=== PATIENT | female | born 2000 | race Caucasian/White ===

== ENCOUNTER 2020-11-20 11:25 | Emergency (ER) | payer OTHER ==
[2020-11-20] MEDS ORDERED: MAGNESIUM SULFATE 1 gm IVPB 1 GM/100 ML BAG IV ONE (12:42)
[2020-11-20] MEDS ORDERED: ALBUTEROL 2.5 MG/3 ML NEB SOL ONE (12:42)
[2020-11-20] MEDS ORDERED: IPRATROPIUM BROM 0.5MG/2.5ML ONE (12:42)
[2020-11-20] MEDS ORDERED: NA CHLORIDE 0.9% 500 ML ONE (12:42)
[2020-11-20] MEDS ORDERED: dexAMETHasone 10 MG/ML VIAL ONE (12:42)
--- NOTE | 2020-11-20 14:25 | EDPHYS ---
Physician Documentation [facility] Name: Charity Bermudez Age: 19 yrs Sex: Female : 2000 Arrival Date: 11/20/2020 Time: 11:27 Bed 24 Private MD: ED Physician Hernando Velez HPI: 11/20 12:15 This 19 yrs old Female presents to ER via Ambulatory with complaints of jmm Asthma Exacerbation. 12:15 The patient presents to the emergency department with wheezing, Current therapy: None, jmm that began weather change. Onset: The symptoms/episode began/occurred gradually, 2 day(s) ago. Modifying factors: The symptoms are alleviated by nothing, the symptoms are aggravated by nothing. Associated signs and symptoms: Pertinent negatives: chest pain, fever. The patient has experienced similar episodes in the past, multiple times. 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 - Social history:: Smoking status: Patient reports the use of cigarette tobacco products, smokes one-half pack cigarettes per day. ROS: 12:15 Constitutional: Negative for fever, chills, and weight loss, Cardiovascular: Negative jmm for chest pain, palpitations, and edema. 12:15 Respiratory: Positive for cough, shortness of breath, wheezing. 12:15 All other systems are negative. Exam: 12:15 Head/Face: atraumatic. Eyes: EOMI, no conjunctival erythema appreciated ENT: Moist jmm Mucus Membranes Neck: Trachea midline, Supple Chest/axilla: Normal chest wall appearance and motion. Cardiovascular: Regular rate and rhythm. No edema appreciated 12:15 Abdomen/GI: Non distended, soft Back: Normal ROM Skin: General appearance color normal MS/ Extremity: Moves all extremities, no obvious deformities appreciated, no edema noted to the lower extremities Neuro: Awake and alert, normal gait Psych: Behavior is normal, Mood is normal, Patient is cooperative and pleasant 12:15 Constitutional: The patient appears alert, awake, anxious, uncomfortable. 12:15 Respiratory: mild respiratory distress is noted, Respirations: normal, Breath sounds: decreased breath sounds, that are moderate, are located in both bases, wheezing: that is mild. Vital Signs: 11:39 BP 120 / 71; Pulse 102; Resp 18; Temp 97.0; Pulse Ox 99% ; Weight 72.57 kg; Height 5 ll1 ft. 5 in. (165.10 cm); Pain 3/10; 12:16 BP 114 / 84; Pulse 93; Resp 18 S; Pulse Ox 98% on R/A; ca1 13:11 BP 109 / 77; Pulse 87; Resp 18 S; Pulse Ox 100% on Nebulizer Mask; ca1 14:14 BP 133 / 80; Pulse 93; Resp 18 S; Pulse Ox 96% on R/A; ca1 11:39 Body Mass Index 26.63 (72.57 kg, 165.10 cm) ll1 MDM: 12:10 Patient medically screened. [facility] 14:23 Data reviewed: vital signs, nurses notes. Counseling: I had a detailed discussion with kendra the patient and/or guardian regarding: the historical points, exam findings, and any diagnostic results supporting the discharge/admit diagnosis, the need for outpatient follow up, to return to the emergency department if symptoms worsen or persist or if there are any questions or concerns that arise at home. ED course: Patient states she feels much better on reevaluation. Patient is otherwise given strict return precautions. patient understood and agrees with the plan of care. . 11/20 12:13 Order name: Saline Lock; Complete Time: 12:45 [facility] Administered Medications: 12:30 Drug: DuoNeb (albuterol 2.5 mg, ipratropium 0.5 mg) (3:1) (2.5 mg - 0.5 mg) 3 ml Route: ca1 Nebulizer; 14:15 Follow up: Response: No adverse reaction; Marked relief of symptoms ca1 12:36 Drug: NS 0.9% 500 ml Route: IV; Rate: bolus; Site: left hand; ca1 13:16 Follow up: Response: No adverse reaction; IV Status: Completed infusion ca1 12:38 Drug: Decadron - Dexamethasone 10 mg Route: IVP; Site: left hand; ca1 14:14 Follow up: Response: No adverse reaction; Marked relief of symptoms ca1 12:40 Drug: Magnesium Sulfate 1 grams Route: IVPB; Infused Over: 1 hrs; Site: left hand; ca1 14:00 Follow up: Response: No adverse reaction; IV Status: Completed infusion; IV Intake: ca1 100ml Disposition: 17:55 Co-signature as Attending Physician, Hernando Velez MD available for consultation at ps1 all times. Signature for administrative purposes. Did not see or evaluate the patient unless otherwise noted. . Disposition: 11/20/20 14:24 Discharged to Home. Impression: Unspecified asthma with (acute) exacerbation. - Condition is Stable. - Discharge Instructions: Asthma, Adult. - Prescriptions for Prednisone 20 mg Oral Tablet - take 3 tablet by ORAL route once daily for 5 days; 15 tablet. Albuterol Sulfate 90 mcg/actuation - inhale 1-2 puff by INHALATION route every 4-6 hours; 1 Inhaler. - Medication Reconciliation Form, Thank You Letter, Antibiotic Education, Prescription Opioid Use form. - Follow up: Private Physician; When: 2 - 3 days; Reason: Recheck today's complaints, Continuance of care, Re-evaluation by your physician. Signatures: Davin Mon PA PA jmm Singer, Phillip, MD MD ps1 Johanny Dickens RN RN ca1 Roberto Chilel RN RN ll1 Corrections: (The following items were deleted from the chart) 14:44 14:24 11/20/2020 14:24 Discharged to Home. Impression: Unspecified asthma with (acute) ca1 exacerbation. Condition is Stable. Forms are Medication Reconciliation Form, Thank You Letter, Antibiotic Education, Prescription Opioid Use. Follow up: Private Physician; When: 2 - 3 days; Reason: Recheck today's complaints, Continuance of care, Re-evaluation by your physician. kendra
--- NOTE | 2020-11-20 14:25 | ER ---
Nurse's Notes [facility] Name: Charity Bermudez Age: 19 yrs Sex: Female : 2000 Arrival Date: 11/20/2020 Time: 11:27 Bed 24 Private MD: Diagnosis: Unspecified asthma with (acute) exacerbation Presentation: 11/20 11:39 Chief complaint: Patient states: SOB since Wednesday, constant. Cough when SOB gets worse. ll1 No fever. Coronavirus screen: Client denies travel out of the [place] in the last 14 days. cough unrelated to allergies, difficulty breathing, shortness of breath, Client presents with at least one sign or symptom that may indicate coronavirus-19. Standard/surgical mask placed on the client. Ebola Screen: Patient denies travel to an Ebola-affected area in the 21 days before illness onset. Initial Sepsis Screen: Does the patient meet any 2 criteria? HR > 90 bpm. No. Patient's initial sepsis screen is negative. Does the patient have a suspected source of infection? Yes: Productive cough/pneumonia. Risk Assessment: Do you want to hurt yourself or someone else? Patient reports no desire to harm self or others. Onset of symptoms was November 18, 2020. 11:39 Method Of Arrival: Ambulatory 1 11:39 Acuity: ADE 3 ll1 REGISTERED PHYSICAL THERAPIST: 12:18 [facility] 10/2020 ca1 Historical: - Allergies: 11:42 No Known Allergies; ll1 - PMHx: 11:42 Asthma; ll1 - Immunization history:: Flu vaccine is not up to date. - Social history:: Smoking status: Patient reports the use of cigarette tobacco products, smokes one-half pack cigarettes per day. Screenin:16 Abuse screen: Denies threats or abuse. Denies injuries from another. Nutritional ca1 screening: No deficits noted. Tuberculosis screening: No symptoms or risk factors identified. Fall Risk None identified. Assessment: 12:16 General: Appears in no apparent distress. comfortable, Behavior is calm, cooperative, ca1 appropriate for age. Pain: Denies pain. Neuro: Level of Consciousness is awake, alert, obeys commands, Oriented to person, place, time, situation. Cardiovascular: Heart tones S1 S2 present Capillary refill < 3 seconds Patient's skin is warm and dry. Respiratory: Airway is patent Respiratory effort is even, unlabored, Respiratory pattern is regular, symmetrical, Breath sounds with wheezes bilaterally. Respiratory: Reports shortness of breath since 3 days [employer] cough that is. GI: Abdomen is flat, non-distended, Bowel sounds present X 4 quads. Abd is soft and non tender X 4 quads. : No signs and/or symptoms were reported regarding the genitourinary system. EENT: No signs and/or symptoms were reported regarding the EENT system. Derm: Skin is intact, is healthy with good turgor, Skin is pink, warm \T\ dry. Musculoskeletal: Circulation, motion, and sensation intact. Capillary refill < 3 seconds. 13:11 Reassessment: Patient appears in no apparent distress at this time. Patient and/or ca1 family updated on plan of care and expected duration. Pain level reassessed. Patient is alert, oriented x 3, equal unlabored respirations, skin warm/dry/pink. 14:14 Reassessment: Patient appears in no apparent distress at this time. Patient and/or ca1 family updated on plan of care and expected duration. Pain level reassessed. Patient is alert, oriented x 3, equal unlabored respirations, skin warm/dry/pink. 14:14 Respiratory: Airway is patent Respiratory effort is even, unlabored, Respiratory ca1 pattern is regular, symmetrical, Breath sounds are clear bilaterally. 14:44 Reassessment: Patient appears in no apparent distress at this time. Patient is alert, ca1 oriented x 3, equal unlabored respirations, skin warm/dry/pink. Patient states feeling better. Patient states symptoms have improved. Vital Signs: 11:39 BP 120 / 71; Pulse 102; Resp 18; Temp 97.0; Pulse Ox 99% ; Weight 72.57 kg; Height 5 ll1 ft. 5 in. (165.10 cm); Pain 3/10; 12:16 BP 114 / 84; Pulse 93; Resp 18 S; Pulse Ox 98% on R/A; ca1 13:11 BP 109 / 77; Pulse 87; Resp 18 S; Pulse Ox 100% on Nebulizer Mask; ca1 14:14 BP 133 / 80; Pulse 93; Resp 18 S; Pulse Ox 96% on R/A; ca1 11:39 Body Mass Index 26.63 (72.57 kg, 165.10 cm) ll1 ED Course: 11:27 Patient arrived in ED. ds1 11:42 Triage completed. ll1 11:42 Arm band placed on. ll1 12:03 Davin Mon PA is PHCP. [facility] 12:03 Hernando Velez MD is Attending Physician. [facility] 12:10 Johanny Dickens, RN is Primary Nurse. ca1 12:16 Patient has correct armband on for positive identification. Bed in low position. Call ca1 light in reach. Side rails up X 1. Pulse ox on. NIBP on. 12:46 Inserted saline lock: 22 gauge in left hand, using aseptic technique. ca1 14:44 No provider procedures requiring assistance completed. IV discontinued, intact, ca1 bleeding controlled, No redness/swelling at site. Pressure dressing applied. Administered Medications: 12:30 Drug: DuoNeb (albuterol 2.5 mg, ipratropium 0.5 mg) (3:1) (2.5 mg - 0.5 mg) 3 ml Route: ca1 Nebulizer; 14:15 Follow up: Response: No adverse reaction; Marked relief of symptoms ca1 12:36 Drug: NS 0.9% 500 ml Route: IV; Rate: bolus; Site: left hand; ca1 13:16 Follow up: Response: No adverse reaction; IV Status: Completed infusion ca1 12:38 Drug: Decadron - Dexamethasone 10 mg Route: IVP; Site: left hand; ca1 14:14 Follow up: Response: No adverse reaction; Marked relief of symptoms ca1 12:40 Drug: Magnesium Sulfate 1 grams Route: IVPB; Infused Over: 1 hrs; Site: left hand; ca1 14:00 Follow up: Response: No adverse reaction; IV Status: Completed infusion; IV Intake: ca1 100ml Intake: 14:00 IV: 100ml; Total: 100ml. ca1 Outcome: 14:24 Discharge ordered by . [facility] 14:44 Discharged to home ambulatory. ca1 14:44 Condition: stable 14:44 Discharge instructions given to patient, Instructed on discharge instructions, follow up and referral plans. medication usage, Demonstrated understanding of instructions, follow-up care, medications, Prescriptions given X 2. 14:44 Patient left the ED. ca1 Signatures: Davin Mon PA PA Rhianna Mack ds1 Johanny Dickens RN RN ca1 Roberto Chilel RN RN ll1 Corrections: (The following items were deleted from the chart) 14:14 14:14 Reassessment: Patient appears in no apparent distress at this time. Patient ca1 and/or family updated on plan of care and expected duration. Pain level reassessed. Patient is alert, oriented x 3, equal unlabored respirations, skin warm/dry/pink. ca1
[2020-11-20 14:52] VITALS: TEMP 97
[2020-11-20 14:55] VITALS: BP 133/80; O2SAT 96
== END 2020-11-20 14:44 | disposition home or self-care (01) ==
LOC: ER 11:25
DX: J45.901 Unspecified asthma with (acute) exacerbation (principal); F17.210 Nicotine dependence, cigarettes, uncomplicated
CPT/HCPCS: 96365; 96375; 99284; J3475; J1100; J7040

== ENCOUNTER 2021-07-23 14:51 | Emergency (ER) | payer OTHER ==
--- OUTSIDE RECORDS SUMMARY | 2021-07-23 14:56 | XMS REPORT | Continuity of Care Document ---
:2000 Author Organization [facility] t Address [address] [place] [address] Care Team Providers Name Role Phone HERRICK Primary Care Physician Unavailable CHRISTOPHER GARCIA Attending Clinician Unavailable Cristi FLEMING Attending Clinician Evert SNIDER, M Attending Clinician Arun Cisneros DO Attending Clinician Delia FLEMING Attending Clinician Doctor Unassigned, Name Attending Clinician Unavailable Mary FLOYD S Attending Clinician Arun CISNEROS Attending Clinician Unavailable Brielle ERAZO Attending Clinician Unavailable CARMEN Attending Clinician Unavailable Carmen HWANG Attending Clinician Delia FLEMING Admitting Clinician CHRISTOPHER GARCIA Admitting Clinician Unavailable Payers Payer Name Policy Type Policy Number Effective Date Expiration Date S agatha [employer] CHOICE POS [id number] 2018 II 00:00:00 [employer] [id number] 2018 2019 HEALTH 00:00:00 00:00:00 Advance Directives Directive Decision Effective Termination Comments Source Date Date Healthcare Agents on N/A [facility] FileNameRelationshipHealthcare [facility] Agent Medical RelationshipCommunicationOfilia Branch [facility] Care [phone] (Mobile) [facility] [phone] (Mobile) Problems Condition Condition Condition Status Onset Resolution Last Treating Co mments Source Name Details Category Date Date Treatment Clinician Date Abscess Abscess Disease Active Univers 9-17 ity of 00:00: [place] 00 Medical Branch Disease Active U nivers care and care and 4-20 ity of examin[place] 00 Medical immediatel immediatel Br anch y after y after delivery delivery 39 weeks 39 weeks Disease Active Unive rs gestation gestation 4-16 ity of of of 00:00: [place] 00 [facility] Obesity Obesity Disease Active Univers (BMI (BMI 4-02 ity of 30-39.9) 30-39.9) 00:00: [address] Asthma Asthma Disease Active Univers complicati complicati 18 it y of ng ng 00:00: [place] , , 00 Me dical antepartum antepartum Br anch Asthma Asthma Disease Active Univers complicati complicati 05-24 it y of ng ng 00:00: [place] , , 00 Me dical antepartum antepartum Br anch Allergies, Adverse Reactions, Alerts Allergy Allergy Status Severity Reaction(s) Onset Inactive Treating Comm ents Source Name Type Date Date Clinician NO KNOWN Drug Active Univers ALLERGIE Class ity of S [facility] Social History Social Habit Start Date Stop Date Quantity Comments Source Exposure to Not sure [facility] SARS-CoV-2 [facility] (event) [place] Tobacco use and 2020-05-29 2020-05-29 Current user Univers ity of exposure 00:00:00 00:00:00 [facility] Alcohol intake 2020-05-29 2020-05-29 Current University of 00:00:00 00:00:00 non-drinker of [facility] alcohol (finding) Branch History [facility] 2020-05-23 2020-05-23 3 University o f Financial 00:00:00 00:00:00 [facility] History [facility] Food 2020-05-23 2020-05-23 1 Univers ity of Worry 00:00:00 00:00:00 [facility] History [facility] Food 2020-05-23 2020-05-23 1 Univers ity of Scarcity 00:00:00 00:00:00 [facility] History [facility] 2020-05-23 2020-05-23 2 University o f Transport Med 00:00:00 00:00:00 [place] Medic al Branch History SDOH 2020-05-23 2020-05-23 2 [place] o f Transport Non-Med 00:00:00 00:00:00 [place] M edical Branch History of 2018-05-05 Cigarette Smoker Universi ty of tobacco use 00:00:00 [facility] Sex Assigned At [birth year] Universit y of 00:00:00 00:00:00 [facility] Smoking Status Start Date Stop Date Source Light tobacco smoker 2020-05-29 00:00:00 Univers ity of [facility] Former smoker 2019-10-15 00:00:00 2019-10-15 [facility]00 [facility] Medications Ordered Filled Start Stop Current Ordering Indication Dosage Frequency Signature Comments Components Source Medication Medication Date Date Medication? Clinician (SIG) Name Name ipratropium 2020- No 3mL 3 mL, Univ ers -albuteroL 12-17 Inhalation it y of (DUONEB) 12:15: 11:12 , ONCE, 1 [place] as 0.5 mg-3 00 :00 dose, Tue Medica l mg(2.5 mg 12/17/20 at Bran ch base)/3 mL 0715, [place] nebulizer solution 3 mL predniSONE 2020- No 60mg 60 mg, Univ ers (DELTASONE) 12-17 Oral, ity of tablet 60 12:15: 11:07 ONCE, 1 [place] mg 00 :00 dose, Tue Medical 12/17/20 at Branch 0715, [place] ipratropium 2020- No 3mL 3 mL, Univ ers -albuteroL 12-17 Inhalation it y of (DUONEB) 12:15: 11:12 , ONCE, 1 [place] as 0.5 mg-3 00 :00 dose, Tue Medica l mg(2.5 mg 12/17/20 at Bran ch base)/3 mL 0715, [place] nebulizer solution 3 mL albuterol Yes [id number] 2{puff} Inhale 2 Univers (PROVENTIL 4-13 Puffs ity of HFA) 90 00:00: every 4 [place] mcg/actuati 00 (four) Medica l on inhaler hours as Branc h needed for Wheezing or Shortness of Breath. albuterol Yes [id number] 2.5mg Inhale 3 Univers 2.5 mg /3 4-13 mL every 4 ity of mL (0.083 00:00: (four) [place] %) 00 hours as Medical nebulizer needed for Bran ch solution Wheezing or Shortness of Breath. predniSONE 2020- No [id number] 60mg Take 3 Univers 20 mg 4-13 04-19 tablets by ity of tablet 00:00: 04:59 mouth [place] 00 :00 every Medical morning Branch for 5 days. lactobacill Yes [id number] 1{tbl} Take 1 Univers us 9-20 tablet by ity of acidophilus 00:00: mouth 2 [place] as 25 million 00 (two) Medical cell -100 times Branch mg captab daily. HYDROcodone Yes [id number] 1{tbl} Take 1-2 Univers -acetaminop 9-20 tablets by it y of hen 5-325 00:00: mouth [place] mg tablet 00 every 6 Medical (six) Branch hours as needed for Pain (scale 7-10). Indication s: acute pain ampicillin- Yes 1.5g 1.5 g, IV U nivers sulbactam 9-20 Piggyback, ity of (UNASYN) 00:00: Q6H ABX, [place] 1.5 g in 00 First dose Medic al NaCl 0.9% (after Branch (NS) 50 mL last MINI-BAG modificati on) on 05/25/20 at 1900, Until Discontinu ed, 50 mL
Reas on for Anti-Infec tive: Empiric Therapy for Suspected Infection< br>Empiric Therapy Site: Skin / Soft tissue
Duration of therapy: 72 hours lactobacill Yes [id number] 1{tbl} Take 1 Univers us 9-20 tablet by ity of acidophilus 00:00: mouth 2 [place] 25 million 00 (two) Medical cell -100 times Branch mg captab daily. HYDROcodone Yes [id number] 1{tbl} Take 1-2 Univers -acetaminop 9-20 tablets by it y of hen 5-325 00:00: mouth [place] mg tablet 00 every 6 Medical (six) Branch hours as needed for Pain (scale 7-10). Indication s: acute pain lactobacill 2020-0 Yes [id number] 1{tbl} Take 1 Univers us 9-20 tablet by ity of acidophilus 00:00: mouth 2 [place] as 25 million 00 (two) Medical cell -100 times Branch mg captab daily. HYDROcodone 2020-0 Yes [id number] 1{tbl} Take 1-2 Univers -acetaminop 9-20 tablets by it y of hen 5-325 00:00: mouth [place] mg tablet 00 every 6 Medical (six) Branch hours as needed for Pain (scale 7-10). Indication s: acute pain amoxicillin 2019-0 2020- No [id number] 1{tbl} Take 1 Univers -clavulanat -06-03 tablet by it y of e 00:00: 04:59 mouth 2 [place] (AUGMENTIN) 00 :00 (two) Medical 875-125 mg times Branch per tablet daily for 7 days. amoxicillin 2019-0 2020- No [id number] 1{tbl} Take 1 Univers -clavulanat -06-03 tablet by it y of e 00:00: 04:59 mouth 2 [place] (AUGMENTIN) 00 :00 (two) Medical 875-125 mg times Branch per tablet daily for 7 days. traMADoL 2019-0 2020- No 50mg 50 mg, Univer s (ULTRAM) 05-25 Oral, ity of tablet 50 21:50: 21:49 Q6HPRN, [place] mg 52 :52 Starting Medical Sat [place] 05/25/20 at 1650, Until [facility] 05/27/20 at 1649, Routine, Pain (scale 4-6) morpHINE 2019-0 2020- No 2mg 2 mg, Slow Un jacinto injection 2 05-25 IV Push, ity of mg 14:30: 13:31 ONCE, 1 [place] 00 :00 dose, Sat Medical 05/25/20 at Branch 0930, Routine vancomycin 2019-0 Yes 1500mg 1,500 mg, Univers 1500 mg in 05-25 IV ity of NS 500 mL 14:00: [place] IV 00 Q12H ABX, Medical Piggyback First dose Bran ch RTU 1,500 (after mg last modificati on) on 05/25/20 at 0900, Until Discontinu ed
Reas on for Anti-Infec tive: Documented Infection< br>Documen jr Infection Site: Skin / Soft Tissue
Duration of Therapy: 7 days KCL 20 2019-0 2020- No 40meq 40 mEq, Univer s mEq/15 mL 05-25 Oral, ONCE ity of solution 40 01:00: 00:47 TODAY, 1 [place] mEq 00 :00 dose, Fri Medical 05/24/20 at Branch 1999, Routine famotidine 2019- 2020- No 20mg 20 mg, Univ ers (PEPCID AC) 05-25 Oral, BID, i ty of tablet 20 01:00: 13:31 2 doses, [place] as mg 00 :00 First dose Medical on Fri Branch 05/24/20 at 2000, Last dose on [facility] 05/25/20 at 0800, Routine diphenhydrA 2019-2019- No 25mg 25 mg, Uni vers MINE 05-24 Oral, Q6H, ity of (BENADRYL) 23:00: 20:55 4 doses, [place] tablet 25 00 :00 First dose Medi nany mg on Fri Branch 05/24/20 at 1800, Last dose on [facility] 05/25/20 at 1200, Routine NaCl 0.9% 2019-0 Yes 1000mL at 50 Unive rs (NS) IV 9-18 mL/hr, IV ity of infusion 21:15: Infusion, [place] 1,000 mL 00 CONTINUOUS Medic al , Starting Branch 05/24/20 at 1615, Until Discontinu ed, Routine cefTRIAXone 2019-2019- No 2000mg 2,000 mg, Univers (ROCEPHIN) 05-24 IV ity of 2,000 mg in 21:10: 22:32 Piggyback, [place] NaCl 0.9% 00 :00 ONCE, 1 Medical (NS) 100 mL dose, [facility] MINI-BAG 05/24/20 at 1615, 100 mL
Reas on for Anti-Infec tive: Empiric Therapy for Suspected Infection< br>Empiric Therapy Site: Pelvic
Duration of therapy: 72 hours zinc 2020-0 Yes 220mg 220 mg, Univers sulfate 05-24 Oral, ity of (ORAZINC) 14:00: DAILY, [place] capsule 220 00 First dose Me dical mg on Wed Branch 05/24/20 at 0900, Until Discontinu ed, Routine ascorbic Yes 1000mg 1,000 mg, Un jacinto acid 05-24 Oral, ity of (vitamin C) 14:00: DAILY, [place] (VITAMIN C) 00 First dose Me dical tablet on Wed Branch 1,000 mg 05/24/20 at 0900, Until Discontinu ed, Routine docusate Yes 100mg 100 mg, Unive rs (COLACE) 05-24 Oral, ity of capsule 100 14:00: DAILY, [place] mg 00 First dose Medical on Wed Branch 05/24/20 at 0900, Until Discontinu ed, Routine vancomycin 2019- No 15mg/kg 1,250 mg Univers 1250 mg in 05-24 (rounded ity of NS 250 mL 01:00: 13:21 from 1,191 [place] RTU IV 00 :00 mg = 15 Medical Piggyback mg/kg Branch 1,250 mg ?79.4 kg), IV Piggyback, Q12H ABX, First dose on [facility] 05/23/20 at 2000, Until Discontinu ed
Reas on for Anti-Infec tive: Documented Infection< br>Documen jr Infection Site: Skin / Soft Tissue
Duration of Therapy: 7 days ampicillin- 2019- No 1.5g 1.5 g, IV Univers sulbactam 05-24 Piggyback, ity of (UNASYN) 00:00: 21:49 Q6H ABX, [place] 1.5 g in 00 :46 First dose Medic al NaCl 0.9% on [facility] Branch (NS) 50 mL 05/23/20 at MINI-BAG 1900, Until Discontinu ed, 50 mL
Reas on for Anti-Infec tive: Empiric Therapy for Suspected Infection< br>Empiric Therapy Site: Skin / Soft tissue
Duration of therapy: 72 hours NaCl 0.9% 2019- No 1000mL at 125 Uni vers (NS) IV 05-23 mL/hr, IV ity of infusion 20:30: 21:02 Infusion, [place] as 1,000 mL 00 :23 CONTINUOUS Medic al , Starting Branch [facility] 05/23/20 at 1530, Until 05/24/20 at 1602, Routine proCHLORper 2020-0 Yes 10mg 10 mg, Univ ers azine 05-23 Slow IV ity of (COMPAZINE) 20:13: Push, [place] injection 47 Q6HPRN, Medical 10 mg Starting Branch [facility] 05/23/20 at 1513, Until Discontinu ed, Routine, Nausea and Vomiting (N/V) HYDROcodone 2020-0 Yes 1{tbl} 1 tablet, Univers -acetaminop 05-23 Oral, ity of hen (NORCO) 20:13: Q6HPRN, Red as 10-325 mg 24 Starting Medica l tablet 1 [facility] tablet 05/23/20 at 1513, Until Discontinu ed, Routine, Pain (scale 7-10) traMADoL 2019-0 2020- No 50mg 50 mg, Univer s (ULTRAM) 05-23 Oral, ity of tablet 50 20:13: 20:12 Q8HPRN, [place] mg 18 :18 Starting Medical [facility] Branch 05/23/20 at 1513, Until 05/25/20 at 1512, Routine, Pain (scale 4-6) acetaminoph 2019-0 Yes 650mg 650 mg, Un jacinto en 05-23 Oral, ity of (TYLENOL) 20:13: Q6HPRN, [place] tablet 650 14 Starting Medic al mg [facility] Branch 05/23/20 at 1513, Until Discontinu ed, Routine, Pain (scale 1-3) morpHINE 2019-0 2020- No 4mg 4 mg, Slow Un jacinto injection 4 05-23 IV Push, ity of mg 19:15: 18:41 ONCE, 1 [place] 00 :00 dose, [facility] Medical 05/23/20 at Branch 1415, STAT NaCl 0.9% 2019-0 2020- No 1000mL at 999 Uni vers (NS) bolus 05-23 mL/hr, ity of infusion 19:00: 22:12 1,000 mL, Red as 1,000 mL 00 :00 IV Medical Infusion, [place] ONCE, 1 dose, [facility] 05/23/20 at 1400, [place] iohexol 2019-0 2020- No 120mL 120 mL, Unive rs (OMNIPAQUE 05-23 Intravenou it y of 350 16:21: 16:22 s, ONCE, 1 [place] BULK-150 00 :00 dose, [facility] Medica l mL) 05/23/20 at [place] injection 1145, 120 mL Routine vancomycin 2019-0 2020- No 1000mg 1,000 mg, Univers (VANCOCIN) 05-23 IV ity of 1,000 mg in 16:00: 17:39 Piggyback, [place] NaCl 0.9% 00 :00 ONCE, 1 Medical (NS) 250 mL dose, [facility] VIAL-MATE 05/23/20 at IV 1100, 250 piggyback mL
Reas on for Anti-Infec tive: Empiric Therapy for Suspected Infection< br>Empiric Therapy Site: Skin / Soft tissue
Duration of therapy: 72 hours ampicillin- 2019-0 2020- No 3000mg 3,000 mg, Univers sulbactam 05-23 IV ity of (UNASYN) 16:00: 15:49 [place], [place] 3,000 mg in 00 :00 ONCE, 1 Medic al NaCl 0.9% dose, [facility] Branc h (NS) 100 mL 05/23/20 at MINI-BAG 1100, 100 mL
Reas on for Anti-Infec tive: Empiric Therapy for Suspected Infection< br>Empiric Therapy Site: Skin / Soft tissue
Duration of therapy: 72 hours ondansetron 2019-0 2020- No 4mg 4 mg, Slow Univers (ZOFRAN 05-23 IV Push, ity of (PF)) 16:00: 15:10 ONCE, 1 [place] injection 4 00 :00 dose, [facility] Med ical mg 05/23/20 at Branch 1100, [place] morpHINE 2019-0 2020- No 4mg 4 mg, Slow Un jacinto injection 4 05-23 IV Push, ity of mg 16:00: 15:11 ONCE, 1 [place] 00 :00 dose, [facility] Medical 05/23/20 at Branch 1100, STAT lactobacill 2020-0 Yes 1{tbl} 1 tablet, Univers us 05-23 Oral, BID, ity of acidophilus 15:00: First dose [place] (ACIDOPHILL 00 on [facility] Medica l US) 25 05/23/20 at [place] million 1000, cell -100 Until mg captab 1 Discontinu tablet ed, Routine NaCl 0.9% 2020-0 2020- No 1000mL at 999 Uni vers (NS) bolus 05-23-17 mL/hr, ity of infusion 15:00: 16:07 1,000 mL, Red as 1,000 mL 00 :00 IV Medical Infusion, [place] ONCE, 1 dose, [facility] 05/23/20 at 1000, [place] predniSONE 2020-0 2020- No 50mg 50 mg, Univ ers (DELTASONE) 10-15 Oral, ity of tablet 50 15:30: 14:29 ONCE, 1 [place] mg 00 :00 dose, [facility] 10/15/19 at [place] 0930, [place] albuterol 2020-0 2020- No 2.5mg 2.5 mg, Uni vers (PROVENTIL) 10-15 Inhalation i ty of 2.5 mg /3 15:15: 15:21 , ONCE, 1 [place] mL (0.083 00 :00 dose, Sun Medic al %) 10/15/19 at [place] nebulizer 0915, STAT solution 2.5 mg ipratropium 2020-0 2020- No .5mg 0.5 mg, Un jacinto (ATROVENT) 10-15- Inhalation it y of 0.02 % 14:30: 14:30 , ONCE, 1 [place] nebulizer 00 :00 dose, Sun Medic al solution 10/15/19 at [place] 0.5 mg 0830, WILMAN albuterol 2020-0 2020- No 5mg 5 mg, Univer s (PROVENTIL) 10-15- Inhalation i ty of 2.5 mg /3 14:30: 14:30 , ONCE, 1 [place] mL (0.083 00 :00 dose, Sun Medic al %) 10/15/19 at [place] nebulizer 0830, STAT solution 5 mg albuterol 2020-0 Yes [id number] 2{puff} Inhale 2 Univers 90 2-09 Puffs ity of mcg/actuati 00:00: every 4 [place] as on inhaler 00 (four) Medical hours as Branch needed for Wheezing or Shortness of Breath. albuterol 2020-0 Yes [id number] 2{puff} Inhale 2 Univers 90 2-09 Puffs ity of mcg/actuati 00:00: every 4 [place] as on inhaler 00 (four) Medical hours as Branch needed for Wheezing or Shortness of Breath. albuterol Yes [id number] 2{puff} Inhale 2 Univers 90 2-09 Puffs ity of mcg/actuati 00:00: every 4 [place] on inhaler 00 (four) Medical hours as Branch needed for Wheezing or Shortness of Breath. albuterol Yes [id number] 2{puff} Inhale 2 Univers 90 2-09 Puffs ity of mcg/actuati 00:00: every 4 [place] on inhaler 00 (four) Medical hours as Branch needed for Wheezing or Shortness of Breath. albuterol Yes [id number] 2{puff} Inhale 2 Univers 90 2-09 Puffs ity of mcg/actuati 00:00: every 4 [place] on inhaler 00 (four) Medical hours as Branch needed for Wheezing or Shortness of Breath. albuterol Yes [id number] 2{puff} Inhale 2 Univers 90 2-09 Puffs ity of mcg/actuati 00:00: every 4 [place] on inhaler 00 (four) Medical hours as Branch needed for Wheezing or Shortness of Breath. albuterol Yes [id number] 2{puff} Inhale 2 Univers 90 2-09 Puffs ity of mcg/actuati 00:00: every 4 [place] on inhaler 00 (four) Medical hours as Branch needed for Wheezing or Shortness of Breath. predniSONE 2019- 2020- No [id number] 50mg Take 5 Univers 10 mg 10-15-14 tablets by ity of tablet 00:00: 05:59 mouth [place] 00 :00 daily for Medical 4 days. Branch dexamethaso 2019- 2020- No 10mg 10 mg, Uni vers ne 10-08- Oral, ity of (DECADRON 18:15: 17:14 ONCE, 1 [place] PHOSPHATE) 00 :00 dose, Sun Medi nany injection 10/08/19 at [facility] h 10 mg 1215, STAT penicillin 2019-0 2020- No [id number] 1000mg Take 2 Univers v potassium 10-08-10 tablets by i ty of 500 mg 00:00: 05:59 mouth 2 [place] tablet 00 :00 (two) Medical times Branch daily for 7 days. penicillin 2020- No [id number] 1000mg Take 2 Univers v potassium 2-02 02-10 tablets by i ty of 500 mg 00:00: 05:59 mouth 2 [place] tablet 00 :00 (two) Medical times Branch daily for 7 days. albuterol Yes [id number] 2{puff} Inhale 2 Univers 90 1-12 Puffs ity of mcg/actuati 00:00: every 4 [place] as on inhaler 00 (four) Medical hours as Branch needed for Wheezing, Shortness of Breath, Bronchospa sm or Chest tightness. albuterol 2019- No [id number] 2{puff} Inhale 2 Univers 90 1-12 02-09 Puffs ity of mcg/actuati 00:00: 00:00 every 4 [place] on inhaler 00 :00 (four) Medical hours as Branch needed for Wheezing, Shortness of Breath, Bronchospa sm or Chest tightness. medroxyPROG 2018- No 150mg Univ ers ESTERone 05-09 ity of (DEPO-PROVE 17:30: 16:16 [place] RA) 00 :00 Medical injection Branch 150 mg medroxyPROG 2018- No 150mg 150 mg, U nivers ESTERone 05-09 Intramuscu ity of (DEPO-PROVE 17:30: 16:16 lar, ONCE, [place] RA) 00 :00 1 dose, Medical injection 05/09/19 Bran ch 150 mg at 1230, Routine medroxyPROG 2019- No 150mg Univ ers ESTERone 05-09 ity of (DEPO-PROVE 17:30: 16:16 [place] RA) 00 :00 Medical injection Branch 150 mg medroxyPROG 2018- No 150mg 150 mg, U nivers ESTERone 05-09 Intramuscu ity of (DEPO-PROVE 17:30: 16:16 lar, ONCE, [place] RA) 00 :00 1 dose, Medical injection 05/09/19 Bran ch 150 mg at 1230, Routine medroxyPROG 2019- No 150mg Univ ers ESTERone 05-09 ity of (DEPO-PROVE 17:30: 16:16 [place] ) 00 :00 Medical injection Branch 150 mg medroxyPROG 2019-0 2019- No 150mg 150 mg, U nivers ESTERone 05-09 09-03 Intramuscu ity of (DEPO-PROVE 17:30: 16:16 lar, ONCE, [place] RA) 00 :00 1 dose, Medical injection 05/09/19 Bran ch 150 mg at 1230, Routine SERTraline 2018-0 Yes [id number] 50mg Take 1 U nivers (ZOLOFT) 50 6-24 tablet by ity of mg tablet 00:00: mouth [place] 00 daily. Medical Branch SERTraline 2018-0 Yes [id number] 50mg Take 1 U nivers (ZOLOFT) 50 6-24 tablet by ity of mg tablet 00:00: mouth [place] 00 daily. Medical Branch SERTraline 2018-0 Yes [id number] 50mg Take 1 U nivers (ZOLOFT) 50 6-24 tablet by ity of mg tablet 00:00: mouth [place] 00 daily. Medical Branch SERTraline 2019-0 Yes [id number] 50mg Take 1 U nivers (ZOLOFT) 50 6-24 tablet by ity of mg tablet 00:00: mouth [place] 00 daily. Medical Branch SERTraline 2019-0 Yes [id number] 50mg Take 1 U nivers (ZOLOFT) 50 6-24 tablet by ity of mg tablet 00:00: mouth [place] 00 daily. Medical Branch SERTraline 2019-0 Yes [id number] 50mg Take 1 U nivers (ZOLOFT) 50 6-24 tablet by ity of mg tablet 00:00: mouth [place] 00 daily. Medical Branch SERTraline 2019-0 Yes [id number] 50mg Take 1 U nivers (ZOLOFT) 50 6-24 tablet by ity of mg tablet 00:00: mouth [place] 00 daily. Medical Branch SERTraline 2019-0 Yes [id number] 50mg Take 1 U nivers (ZOLOFT) 50 6-24 tablet by ity of mg tablet 00:00: mouth [place] 00 daily. Medical Branch SERTraline 2019-0 Yes [id number] 50mg Take 1 U nivers (ZOLOFT) 50 6-24 tablet by ity of mg tablet 00:00: mouth [place] 00 daily. Medical Branch SERTraline 2019-0 Yes [id number] 50mg Take 1 U nivers (ZOLOFT) 50 6-24 tablet by ity of mg tablet 00:00: mouth [place] 00 daily. Medical Branch SERTraline Yes [id number] 50mg Take 1 U nivers (ZOLOFT) 50 6-24 tablet by ity of mg tablet 00:00: mouth [place] 00 daily. Medical Branch SERTraline Yes [id number] 50mg Take 1 U nivers (ZOLOFT) 50 6-24 tablet by ity of mg tablet 00:00: mouth [place] 00 daily. Medical Branch budesonide- Yes 2{puff} Inhale 2 Univers formoterol 9-18 Puffs 2 ity of 80-4.5 00:00: (two) [place] mcg/actuati 00 times Medical on inhaler daily. [place] budesonide Yes 2{puff} Inhale 2 Univers formoterol 9-18 Puffs 2 ity of 80-4.5 00:00: (two) [place] mcg/actuati 00 times Medical on inhaler daily. [place] budesonide Yes 2{puff} Inhale 2 Univers formoterol 9-18 Puffs 2 ity of 80-4.5 00:00: (two) [place] mcg/actuati 00 times Medical on inhaler daily. [place] budesonide Yes 2{puff} Inhale 2 Univers formoterol 9-18 Puffs 2 ity of 80-4.5 00:00: (two) [place] mcg/actuati 00 times Medical on inhaler daily. [place] budesonide Yes 2{puff} Inhale 2 Univers formoterol 9-18 Puffs 2 ity of 80-4.5 00:00: (two) [place] mcg/actuati 00 times Medical on inhaler daily. [place] budesonide Yes 2{puff} Inhale 2 Univers formoterol 9-18 Puffs 2 ity of 80-4.5 00:00: (two) [place] mcg/actuati 00 times Medical on inhaler daily. [place] budesonide Yes 2{puff} Inhale 2 Univers formoterol 9-18 Puffs 2 ity of 80-4.5 00:00: (two) [place] mcg/actuati 00 times Medical on inhaler daily. [place] budesonide- 0 Yes 2{puff} Inhale 2 Univers formoterol 9-18 Puffs 2 ity of 80-4.5 00:00: (two) [place] mcg/actuati 00 times Medical on inhaler daily. [place] budesonide Yes 2{puff} Inhale 2 Univers formoterol 9-18 Puffs 2 ity of 80-4.5 00:00: (two) [place] mcg/actuati 00 times Medical on inhaler daily. [place] budesonide Yes 2{puff} Inhale 2 Univers formoterol 9-18 Puffs 2 ity of 80-4.5 00:00: (two) [place] mcg/actuati 00 times Medical on inhaler daily. [place] budesonide Yes 2{puff} Inhale 2 Univers formoterol 9-18 Puffs 2 ity of 80-4.5 00:00: (two) [place] mcg/actuati 00 times Medical on inhaler daily. [place] budesonide Yes 2{puff} Inhale 2 Univers formoterol 9-18 Puffs 2 ity of 80-4.5 00:00: (two) [place] mcg/actuati 00 times Medical on inhaler daily. [place] Immunizations Ordered Filled Immunization Date Status Comments [facility] e Immunization Name Name Varicella 2018-12-24 Completed University of (varivax)(chicken 00:00:00 [place] M edical pox) Branch Varicella 2018-12-24 Completed University of (varivax)(chicken 00:00:00 [place] M edical pox) Branch Varicella 2018-12-24 Completed University of (varivax)(chicken 00:00:00 [place] M edical pox) Branch Varicella 2018-12-24 Completed University of (varivax)(chicken 00:00:00 [place] M edical pox) Branch Varicella 2018-12-24 Completed University of (varivax)(chicken 00:00:00 [place] M edical pox) Branch Varicella 2018-12-24 Completed University of (varivax)(chicken 00:00:00 [place] M edical pox) Branch Varicella 2018-12-24 Completed University of (varivax)(chicken 00:00:00 [place] M edical pox) Branch Varicella 2018-12-24 Completed University of (varivax)(chicken 00:00:00 [place] M edical pox) Branch Varicella 2018-12-24 Completed University of (varivax)(chicken 00:00:00 [place] M edical pox) Branch Varicella 2018-12-24 Completed University of (varivax)(chicken 00:00:00 [place] M edical pox) Branch Varicella 2018-12-24 Completed University of (varivax)(chicken 00:00:00 [place] M edical pox) Branch Varicella 2018-12-24 Completed University of (varivax)(chicken 00:00:00 [place] M edical pox) Branch Tdap 2018-11-07 Completed University of 00:00:00 [facility] Tdap 2018-11-07 Completed University of 00:00:00 [facility] Tdap 2018-11-07 Completed University of 00:00:00 [facility] Tdap 2018-11-07 Completed University of 00:00:00 [facility] TDAP 2018-11-07 Completed University of 00:00:00 [facility] Tdap 2018-11-07 Completed University of 00:00:00 [facility] TDAP 2018-11-07 Completed University of 00:00:00 [facility] TDAP 2018-11-07 Completed University of 00:00:00 [facility] Tdap 2018-11-07 Completed University of 00:00:00 [facility] Tdap 2018-11-07 Completed University of 00:00:00 [facility] Tdap 2018-11-07 Completed University of 00:00:00 [facility] Tdap 2018-11-07 Completed University of 00:00:00 [facility] Influenza Virus 2018-06-21 Completed Universit y of Vaccine Quad .5 mL 00:00:00 [facility] 6+ MO Branch Influenza Virus 2018-06-21 Completed Universit y of Vaccine [facility] .5 mL 00:00:00 [facility] 6+ [facility] Influenza Virus 2018-06-21 Completed Universit y of Vaccine [facility] .5 mL 00:00:00 [facility] IM 6+ MO Branch Influenza Virus 2018-06-21 Completed Universit y of [facility] [place] .5 mL 00:00:00 [facility] IM 6+ MO Branch Influenza Virus 2018-06-21 Completed Universit y of [facility] .5 mL 00:00:00 [facility] 6+ [facility] Influenza Virus 2018-06-21 Completed Universit y of [facility] .5 mL 00:00:00 [facility] 6+ [place] [facility] Influenza Virus 2018-06-21 Completed Universit y of [facility] .5 mL 00:00:00 [facility] 6+ [place] [facility] Influenza Virus 2018-06-21 Completed Universit y of [facility] .5 mL 00:00:00 [facility] 6+ [place] [facility] Influenza Virus 2018-06-21 Completed Universit y of [facility] .5 mL 00:00:00 [facility] 6+ [place] [facility] Influenza Virus 2018-06-21 Completed Universit y of [facility] .5 mL 00:00:00 [facility] 6+ [place] [facility] Influenza Virus 2018-06-21 Completed Universit y of [facility] [place] .5 mL 00:00:00 [facility] 6+ [facility] Influenza Virus 2018-06-21 Completed Universit y of [facility] [place] .5 mL 00:00:00 [facility] 6+ [place] [facility] Vital Signs Vital Name Observation Time Observation Value Comments Source Heart rate 2020-12-17 11:21:00 77 /min Universi ty [facility] Respiratory rate 2020-12-17 11:21:00 20 /min [facility] in 2020-12-17 11:13:00 100 /min University of Arterial blood by [facility] Pulse oximetry Branch Body weight 2020-12-17 11:01:00 72.576 kg Universi ty [facility] Systolic blood 2020-05-26 13:14:00 105 mm[Hg] Univer sity of pressure [facility] Diastolic blood 2020-05-26 13:14:00 58 mm[Hg] Unive rsity of pressure [facility] Heart rate 2020-05-26 13:14:00 73 /min Universi ty [facility] Body temperature 2020-05-26 13:14:00 37.11 Becky [facility] ersity of [facility] Oxygen saturation in 2020-05-26 13:14:00 93 /min University of Arterial blood by [facility] Pulse oximetry Branch Respiratory rate 2020-05-26 10:15:00 17 /min Univ ersity of [facility] Body weight 2020-05-24 09:40:00 84.823 kg Universi ty [facility] BMI 2020-05-24 09:40:00 31.12 kg/m2 Universi ty of [facility] Body height 2020-05-23 20:00:00 165.1 cm Universi ty of [facility] Systolic blood 2020-01-17 19:40:00 158 mm[Hg] Univer sity of pressure [facility] Diastolic blood 2020-01-17 19:40:00 80 mm[Hg] Unive rsity of pressure [facility] Heart rate 2020-01-17 19:40:00 80 /min Universi ty of [facility] Respiratory rate 2020-01-17 19:40:00 20 /min Univ ersity of [facility] Oxygen saturation in 2020-01-17 19:40:00 100 /min [facility] by [facility] Pulse oximetry [facility] Body temperature 2020-01-17 15:39:00 37.61 Becky Univ ersity of [facility] Body height 2020-01-17 15:39:00 165.1 cm Universi ty [facility] Body weight 2020-01-17 15:39:00 106.595 kg Universi ty [facility] BMI 2020-01-17 15:39:00 39.11 kg/m2 Universi ty of [facility] Systolic blood 2019-12-14 22:28:00 128 mm[Hg] Univer sity of pressure [facility] Diastolic blood 2019-12-14 22:28:00 65 mm[Hg] Unive rsity of pressure [facility] Heart rate 2019-12-14 22:28:00 101 /min Universi ty of [facility] Body temperature 2019-12-14 22:28:00 37.17 Becky Univ ersity of [facility] Respiratory rate 2019-12-14 22:28:00 18 /min Univ ersity of [facility] Body height 2019-12-14 22:28:00 165.1 cm Universi ty of [facility] Body weight 2019-12-14 22:28:00 104.327 kg Universi ty of [facility] BMI 2019-12-14 22:28:00 38.27 kg/m2 Universi ty of [facility] Oxygen saturation in 2019-12-14 22:28:00 98 /min University [facility]ial blood by [facility] Pulse oximetry [facility] Respiratory rate 2019-10-15 15:31:00 16 /min Univ ersity of [facility] Oxygen saturation in 2019-10-15 15:31:00 96 /min University of Arterial blood by [facility] nany Pulse oximetry Branch Systolic blood 2019-10-15 15:00:00 142 mm[Hg] Univer sity of pressure [facility] Diastolic blood 2019-10-15 15:00:00 85 mm[Hg] Unive rsity of pressure [facility] Heart rate 2019-10-15 15:00:00 117 /min Universi ty of [facility] Body temperature 2019-10-15 14:26:00 37.17 Becky Univ ersity of [facility] Body height 2019-10-15 14:26:00 165.1 cm Universi ty of [facility] Body weight 2019-10-15 14:26:00 102.059 kg Universi ty of [facility] BMI 2019-10-15 14:26:00 37.44 kg/m2 Universi ty [facility] Systolic blood 2019-10-08 16:56:00 126 mm[Hg] Univer sity of pressure [facility] Diastolic blood 2019-10-08 16:56:00 83 mm[Hg] Unive rsity of pressure [facility] Heart rate 2019-10-08 16:56:00 109 /min Universi ty of [facility] Body temperature 2019-10-08 16:56:00 36.89 Becky Univ ersity of [facility] Respiratory rate 2019-10-08 16:56:00 20 /min Univ ersity of [facility] Body height 2019-10-08 16:56:00 165.1 cm Universi ty of [facility] Body weight 2019-10-08 16:56:00 104.327 kg Universi ty [facility] BMI 2019-10-08 16:56:00 38.27 kg/m2 Universi ty of [facility] Oxygen saturation in 2019-10-08 16:56:00 100 /min University of Arterial blood by [facility] Pulse oximetry Branch Systolic blood 2019-05-09 15:43:00 129 mm[Hg] Univer sity of pressure [facility] Diastolic blood 2019-05-09 15:43:00 72 mm[Hg] Unive rsity of pressure [facility] Heart rate 2019-05-09 15:43:00 77 /min Universi ty of [facility] Body temperature 2019-05-09 15:43:00 36.67 Becky Univ ersity of [facility] Respiratory rate 2019-05-09 15:43:00 18 /min [facility] Body height 2019-05-09 15:43:00 165.1 cm [facility] Body weight 2019-05-09 15:43:00 103.874 kg [facility] BMI 2019-05-09 15:43:00 38.11 kg/m2 [facility] Procedures Procedure Date / Time Performing Clinician Source Performed NOTICE OF PRIVACY 2020-12-17 10:54:32 Doctor Unassigned, [facility] PRACTICES [place] [facility] CONSENT/REFUSAL FOR 2020-12-17 10:54:21 Doctor Unassigned, [facility] DIAGNOSIS AND TREATMENT [place] [facility] BASIC METABOLIC PANEL (NA, 2020-05-26 10:26:00 Erin Stephens [facility] K, CL, CO2, GLUCOSE, BUN, Medica l Branch CREATININE, CA) CBC WITH DIFF 2020-05-26 10:26:00 Erin Stephens [facility] BASIC METABOLIC PANEL (NA, 2020-05-25 08:34:00 Erin Stephens [facility] K, CL, CO2, GLUCOSE, BUN, Medica l Branch CREATININE, CA) CBC WITH DIFF 2020-05-25 08:34:00 Erin Stephens [facility] VANCOMYCIN TROUGH 2020-05-25 00:48:00 Tello Lin [facility] ASPIRATE OR ABSCESS 2020-05-24 20:39:50 Melanie Willingham [facility] CULTURE(AEROBIC/ANAEROBIC) [facility] BASIC METABOLIC PANEL (NA, 2020-05-24 10:44:00 Erin Stephens [facility] K, CL, CO2, GLUCOSE, BUN, Medica l Branch CREATININE, CA) CBC WITH DIFF 2020-05-24 10:44:00 Erin Stephens [facility] URINE CULTURE 2020-05-23 23:28:00 Erin Stephens [facility] PNEUMOCOCCAL ANTIGEN 2020-05-23 23:27:00 Erin Stephens [facility] LACTATE DEHYDROGENASE 2020-05-23 22:09:00 Erin Stephens [facility] PROCALCITONIN 2020-05-23 22:08:00 Erin Stephens [facility] CT PELVIS W CONTRAST 2020-05-23 16:31:[address] [facility] POCT TEST 2020-05-23 15:17:00 Berna Cisneros [facility] BLOOD CULTURE SCREEN 2020-05-23 15:16:[address] [facility] URINALYSIS 2020-05-23 15:16:00 Berna Cisneros [facility] BLOOD CULTURE SCREEN 2020-05-23 15:09:[address] [facility] FERRITIN SERUM 2020-05-23 15:09:00 Erin Stephens [facility] BASIC METABOLIC PANEL (NA, 2020-05-23 15:09:00 Berna Cisneros [facility] K, CL, CO2, GLUCOSE, BUN, Medica l Branch CREATININE, CA) CBC WITH DIFF 2020-05-23 15:09:00 Berna Cisneros [facility] GLYCOSYLATED HEMOGLOBIN 2020-05-23 15:09:00 Erin Stephens [facility] (A1C) [facility] COVID-19 (ID NOW RAPID 2020-05-23 15:09:00 Berna Cisneros [facility] TESTING) [facility] LACTIC ACID WHOLE BLOOD 2020-05-23 15:05:00 [facility] OF [facility]IVACY 2020-05-23 14:40:08 Doctor Unassigned, [facility] PRACTICES [place] [facility] [place] CONSENT/REFUSAL FOR 2020-05-23 14:39:59 Doctor Unasspaul, [facility] DIAGNOSIS AND TREATMENT [place] [facility] [place] FREE T4 2020-01-17 16:51:00 Jose Martin Colin [place] o [facility] THYROID STIMULATING 2020-01-17 16:51:00 Jose Martin Colin [facility] HORMONE [facility] HEPATIC FUNCTION PANEL 2020-01-17 16:51:00 Jose Martin Colin [facility] ([id number]) (ALB,T.PRO,BILI Medical Branch T,BU/BC,ALT,AST,ALK PHOS) BASIC METABOLIC PANEL (NA, 2020-01-17 16:51:00 Jose Martin Colin [facility] K, CL, CO2, GLUCOSE, BUN, Medica l Branch CREATININE, CA) SALICYLATE 2020-01-17 16:51:00 Jose Martin Colin [facility] ETHANOL 2020-01-17 16:51:00 Jose Martin Colin [facility] CBC WITH DIFFERENTIAL 2020-01-17 16:51:00 Jose Martin Colin [facility] sity [facility] PROTHROMBIN TIME / INR 2020-01-17 16:51:00 Jose Martin Colin [facility] ACTIVATED PARTIAL THRMPLAS 2020-01-17 16:51:00 Jose Martin Colin [facility] URINALYSIS 2020-01-17 16:51:00 Jose Martin Colin [facility] POCT TEST 2020-01-17 16:51:00 Jose Martin Colin [facility] ADC / LCC - DRUG SCREEN 2020-01-17 16:51:00 Jose Martin Colin [facility] CONSENT/REFUSAL FOR 2020-01-17 15:31:30 Doctor Unaleni, [facility] STREP SCREEN FOR 2019-10-08 17:14:00 Berna Cisneros [facility] A [facility] CONSENT/REFUSAL FOR 2019-10-08 16:54:42 Doctor Ron, [facility] NO SHOW OR MISSED 2019-05-09 15:30:47 Doctor Ron [facility] APPOINTMENT POLICY [place] [facility] ACKNOWLEDGEMENT POCT TEST 2019-05-09 00:00:00 Leydi Chandler [facility] Encounters Start End Encounter Admission Attending Care Care Encounter Source Date/Time Date/Time Type Type Clinicians Facility Department ID 2021-07-06 Emergency [facility] [id number] [facility] Emergency [facility] [id number] Univers 18:01:37 [facility]-07-03 Emergency [facility] [id number] Univers 20:50:57 [facility] 2021-07-03 Emergency [facility] [id number] Univers 17:36:43 ity of [facility] 2021-07-28 2021-07-28 Outpatient Mingo GARCIAJOEEN [facility] [id number] Univers 14:00:00 14:00:00 [id number] ity of [facility] 2020-12-17 2020-12-17 Emergency [facility] [id number] Univers 05:59:00 07:03:00 Jose Martin Zelaya [id number] i ty [place] [id number] [place] 945684 [place] 2020-05-28 2020-05-28 Transition Gillian Loyd [id number] Univers 00:00:00 00:00:00 of Care Mattie Bullard [id number] i ty [place] [id number] [facility] 403 Branch 2020-05-23 2020-05-26 [facility] Berna Cisneros [facility] 1.2.84 [id number] Univers 09:46:00 09:37:00 Encounter Tello Lin [id number] [place]y [place] [id number] [place] [id number] [place] 2020-01-17 2020-01-17 [facility] [id number] Univers 10:45:16 14:44:00 Jose Martin Zelaya [id number] i ty [place] [id number] [place] 945684 [place] 2020-01-17 2020-01-17 Orders Doctor FOREST [id number] Univers 00:00:00 00:00:00 Only Unassigned, SABINA [id number] ity of [place] [facility] 4.2.7.2.686 [place] [id number] [facility] 009 Branch 2019-12-14 2019-12-14 Emergency [facility] [id number] Univers 17:30:12 19:02:00 Erin Hannah Garcia [id number] i ty of [place] 4.2.7.2.686 [facility] [id number] [address] 2019-10-15 2019-10-15 Emergency [facility] E[facility] [id number] Univers 08:24:18 09:54:00 BERNA ravi [facility] 2019-10-15 2019-10-15 Emergency [facility] [id number] Univers 08:24:18 09:54:00 Berna Dias Garcia [id number] ity of [place] 4.2.7.2.686 [facility] [id number] [address] 2019-10-08 2019-10-08 Emergency X [facility] ERT [id number] Univers 10:57:03 12:01:00 BERNA kingstondemetrio [facility] 2019-10-08 2019-10-08 Emergency [facility] [id number] Univers 10:57:03 12:01:00 Berna Zelaya [id number] ity of [place] 4.2.7.2.686 [facility] [id number] [address] 2019-09-16 2019-09-17 Emergency [facility] ERT [id number] Univers 23:41:38 01:04:00 [facility] 2019-05-09 2019-05-09 Outpatient R CARMEN [facility] [id number] Univers 11:15:00 11:29:05 LEYDI ravi [facility] 2019-05-09 2019-05-09 Office Carmen [facility] [id number] Univers 10:32:19 11:02:19 Visit Leydi Zelaya 350.1.13.10 i ty of [place] 4.2.7.2.686 [facility] Professio [id number] [facility] 134 [facility] 2019-05-09 2019-05-09 Orders Doctor GARG [id number] Univers 00:00:00 00:00:00 Only Unassigned, SABINA Fuller.1.13.10 ity of [place] [facility] 4.2.7.2.686 [place] [id number] [address] 2019-02-27 2019-02-27 Outpatient ARTEMIO ESTEVEZ [facility] [id number] Univers 10:45:00 11:26:28 ity [facility] 2018-12-20 2018-12-24 Inpatient [facility] [id number] [facility] 18:45:00 13:35:00 [facility] Results Test Description Test Time Test Comments Results Result Comments Source Basic Metabolic Panel (NA, K, CL, CO2, GLUCOSE, BUN, 2020-05 12:33:00 CREATININE, CA) Test Item Value Reference Range Interpretation Comme nts NA (test code = 7236377781) 140 mmol/L 135-145 K (test code = 1007482839) 3.5 mmol/L 3.5-5 CL (test code = 8975760637) 105 mmol/L 98-108 CO2 TOTAL (test code = 3920563985) 29 mmol/L 23-31 AGAP (test code = 9724581546) 2-16 BUN (test code = 8580167922) 7 mg/dL 7-23 GLUCOSE (test code = 2673633223) 101 mg/dL 70-110 CREATININE (test code = 0.60 mg/dL 0.5-1.04 8337023451) CALCIUM (test code = 2590167531) 8.3 mg/dL 8.6-10.6 L eGFR Calculation (Non- mL/min/1.73m2 [place]) (test code = 8657711646) eGFR Calculation ( mL/min/1.73m2 [place]) (test code = 1217048754) WILLY (test code = WILLY) Association of Glomerular Filtration Rate (GFR) and Staging of Kidney Disease* + +-------- + ------+| GFR (mL/min/1.73 m2) ?| With Kidney Damage ?| ?Without Kidney Damage+ +-- + +| ?>90 ?| ?Stage one ?| ? Normal ?+ +------- + -------+| ?60-89 ?| ?Stage two ?| ? Decreased GFR ? + +-------- + ------+| ?30-59 ?| ?Stage three ?| ? Stage three ? + +-------- + ------+| ?15-29 ?| ?Stage four ? | ? Stage four ?+ +------- + -------+| ?<15 (or dialysis) ? ?| ?Stage five ? | ? Stage five ?+ +------- + -------+ *Each stage assumes the associated GFR level has been in effect for at least three months. ?Stages 1 to 5, with or without kidney disease, indicate chronic kidney disease. Notes: Determination of stages one and two (with eGFR >59mL/min/1.73 m2) requires estimation of kidney damage for at least three months as defined by structural or functional abnormalities of the kidney, manifested by either:Pathological abnormalities or Markers of kidney damage (including abnormalities in the composition of the blood or urine or abnormalities in imaging tests). Lab Interpretation (test code = Abnormal 99292-6) [facility] with [id number] 11:31:00 Test Item Value Reference Range Interpretation Comments WBC (test code = See_Comment H [Automated 6690-2) message] The sy stem which generated this result transmitted reference range : 4.30 - 11.10 10*3/?L. The reference range was not used to interpret this result as normal/abnormal . RBC (test code = See_Comment L [Automated 789-8) message] The sy stem which generated this result transmitted reference range : 3.93 - 5.25 10*6/?L. The reference range was not used to interpret this result as normal/abnormal . HGB (test code = 11.0 g/dL 11.6-15 L 718-7) HCT (test code = 31.9 % 35.7-45.2 L 4544-3) MCV (test code = 90.1 fL 80.6-95.5 787-2) MCH (test code = 31.1 pg 25.9-32.8 785-6) MCHC (test code = 34.5 g/dL 31.6-35.1 786-4) RDW-SD (test code = 38.1 fL 39-49.9 L 85227-0) RDW-CV (test code = 11.5 % 12-15.5 L 788-0) PLT (test code = See_Comment [Automated 777-3) message] The sy stem which generated this result transmitted reference range : 166 - 358 10*3/ ?L. The reference r michael was not used to interpret this result as normal/abnormal . MPV (test code = 10.6 fL 9.5-12.9 54275-3) NRBC/100 WBC (test See_Comment [Automat ed code = 0518258730) message] The system which generated this result transmitted reference range : 0.0 - 10.0 /100 WBCs. The refer ence range was not u sed to interpret th is result as normal/abnormal . NRBC x10^3 (test code <0.01 See_Comment [Auto mated = 2421355032) message] The s ystem which generated this result transmitted reference range : 10*3/?L. The reference range was not used to interpret this result as normal/abnormal . GRAN MAT (NEUT) % 67.8 % (test code = 770-8) IMM GRAN % (test code 0.90 % = 5065202214) LYMPH % (test code = 21.0 % 736-9) MONO % (test code = 6.8 % 5905-5) EOS % (test code = 3.0 % 713-8) BASO % (test code = 0.5 % 706-2) GRAN MAT x10^3(ANC) 8.45 10*3/uL 1.88-7.09 H (test code = 9908886558) IMM GRAN x10^3 (test 0.11 10*3/uL 0-0.06 H code = 2112372705) LYMPH x10^3 (test code 2.61 10*3/uL 1.32-3.29 = 731-0) MONO x10^3 (test code 0.84 10*3/uL 0.33-0.92 = 742-7) EOS x10^3 (test code = 0.37 10*3/uL 0.03-0.39 711-2) BASO x10^3 (test code 0.06 10*3/uL 0.01-0.07 = 704-7) Lab Interpretation Abnormal (test code = 68279-2) [id number] 13:13:00 Test Item Value Reference Range Interpretation Comments URINE CULTURE (test No aerobic growth (< code = 630-4) 1000 CFU/mL) [facility] [id number] 11:22:00 Test Item Value Reference Range Interpretation Comments WBC (test code = See_Comment H [Automated 6690-2) message] The system which generated this result transmit jr reference range : 4.30 - 11.10 10*3/?L. The reference range was not used to interpret this result as normal/abnormal . RBC (test code = See_Comment L [Automated 789-8) message] The system which generated this result transmit jr reference range : 3.93 - 5.25 10*6/?L. The reference range was not used to interpret this result as normal/abnormal . HGB (test code = 11.6 g/dL 11.6-15 718-7) HCT (test code = 33.9 % 35.7-45.2 L 4544-3) MCV (test code = 89.9 fL 80.6-95.5 787-2) MCH (test code = 30.8 pg 25.9-32.8 785-6) MCHC (test code = 34.2 g/dL 31.6-35.1 786-4) RDW-SD (test code = 37.8 fL 39-49.9 L 54065-4) RDW-CV (test code = 11.6 % 12-15.5 L 788-0) PLT (test code = See_Comment [Automated 777-3) message] The system which generated this result transmit jr reference range : 166 - 358 10*3/ ?L. The reference range was not u sed to interpret th is result as normal/abnormal . MPV (test code = 10.5 fL 9.5-12.9 67726-7) NRBC/100 WBC (test See_Comment [Automat ed code = 4647475159) message] The system which generated this result transmit jr reference range : 0.0 - 10.0 /100 WBCs. The reference range was not used to interpret this result as normal/abnormal . NRBC x10^3 (test code <0.01 See_Comment [Auto mated = 7195871058) message] The system which generated this result transmit jr reference range : 10*3/?L. The reference range was not used to interpret this result as normal/abnormal . GRAN MAT (NEUT) % 90.8 % (test code = 770-8) IMM GRAN % (test code 1.10 % = 3773316516) LYMPH % (test code = 4.2 % 736-9) MONO % (test code = 3.6 % 5905-5) EOS % (test code = 0.0 % 713-8) BASO % (test code = 0.3 % 706-2) GRAN MAT x10^3(ANC) 19.17 10*3/uL 1.88-7.09 H (test code = 0717604707) IMM GRAN x10^3 (test 0.23 10*3/uL 0-0.06 H code = 2054316082) LYMPH x10^3 (test code 0.89 10*3/uL 1.32-3.29 L = 731-0) MONO x10^3 (test code 0.75 10*3/uL 0.33-0.92 = 742-7) EOS x10^3 (test code = <0.03 0.03-0.39 L 711-2) BASO x10^3 (test code 0.06 10*3/uL 0.01-0.07 = 704-7) Lab Interpretation Abnormal (test code = 94856-3) [facility] Metabolic Panel (NA, K, CL, CO2, GLUCOSE, BUN, CREATININE, CA)2020-05-25 11:18:00 Test Item Value Reference Range Interpretation Comments NA (test code = 138 mmol/L 135-145 4137623785) K (test code = 4.1 mmol/L 3.5-5 4019337311) CL (test code = 103 mmol/L 98-108 7280909163) CO2 TOTAL (test code = 28 mmol/L 23-31 6946893503) AGAP (test code = 2-16 7464123865) BUN (test code = 9 mg/dL 7-23 4516890668) GLUCOSE (test code = 139 mg/dL 70-110 H 6216637490) CREATININE (test code = 0.59 mg/dL 0.5-1.04 6618929535) CALCIUM (test code = 8.6 mg/dL 8.6-10.6 8013236320) eGFR Calculation mL/min/1.73m2 (Non-) (test code = 6212155301) eGFR Calculation mL/min/1.73m2 () (test code = 6132187878) WILLY (test code = WILLY) Association of Glomerular Filtration Rate (GFR) and Staging of Kidney Disease* + --+ --+ ------+| GFR (mL/min/1.73 m2) ?| With Kidney Damage ?| ?Without Kidney Damage+ --------+ --------+ +| ?>90 ?| ?Stage one ?| ? Normal ?+ ---+ ---+ -------+| ?60-89 ?| ?Stage two ?| ? Decreased GFR ? + --+ --+ ------+| ?30-59 ?| ?Stage three ?| ? Stage three ? + --+ --+ ------+| ?15-29 ?| ?Stage four ? | ? Stage four ?+ ---+ ---+ -------+| ?<15 (or dialysis) ? ?| ?Stage five ? | ? Stage five ?+ ---+ ---+ -------+ *Each stage assumes the associated GFR level has been in effect for at least three months. ?Stages 1 to 5, with or without kidney disease, indicate chronic kidney disease. Notes: Determination of stages one and two (with eGFR >59mL/min/1.73 m2) requires estimation of kidney damage for at least three months as defined by structural or functional abnormalities of the kidney, manifested by either:Pathological abnormalities or Markers of kidney damage (including abnormalities in the composition of the blood or urine or abnormalities in imaging tests). Lab Interpretation Abnormal (test code = 37747-9) [facility] - Draw within 30 minutes prior to 4TH dose.2020-05-25 02:23:00 Test Item Value Reference Range Interpretation Comments VANCO TROUGH (test code 5.2 ug/mL 10-20 L = 1954368931) WILLY (test code = WILLY) Toxic Range: ?>20 ug/mL 15-20 ug/mL is recommended for severe infection or when Vancomycin EVETTE is greater than or equal to 2. Lab Interpretation (test Abnormal code = 76822-1) [facility] with [id number] 11:29:00 Test Item Value Reference Range Interpretation Comments WBC (test code = See_Comment H [Automated 6690-2) message] The system which generated this result transmit jr reference range : 4.30 - 11.10 10*3/?L. The reference range was not used to interpret this result as normal/abnormal . RBC (test code = See_Comment [Automated 789-8) message] The system which generated this result transmit jr reference range : 3.93 - 5.25 10*6/?L. The reference range was not used to interpret this result as normal/abnormal . HGB (test code = 13.2 g/dL 11.6-15 718-7) HCT (test code = 37.2 % 35.7-45.2 4544-3) MCV (test code = 89.6 fL 80.6-95.5 787-2) MCH (test code = 31.8 pg 25.9-32.8 785-6) MCHC (test code = 35.5 g/dL 31.6-35.1 H 786-4) RDW-SD (test code = 38.4 fL 39-49.9 L 23875-0) RDW-CV (test code = 11.8 % 12-15.5 L 788-0) PLT (test code = See_Comment [Automated 777-3) message] The system which generated this result transmit jr reference range : 166 - 358 10*3/ ?L. The reference range was not u sed to interpret th is result as normal/abnormal . MPV (test code = 10.1 fL 9.5-12.9 48718-3) NRBC/100 WBC (test See_Comment [Automat ed code = 8341451208) message] The system which generated this result transmit jr reference range : 0.0 - 10.0 /100 WBCs. The reference range was not used to interpret this result as normal/abnormal . NRBC x10^3 (test code <0.01 See_Comment [Auto mated = 0784529334) message] The system which generated this result transmit jr reference range : 10*3/?L. The reference range was not used to interpret this result as normal/abnormal . GRAN MAT (NEUT) % 81.1 % (test code = 770-8) IMM GRAN % (test code 0.90 % = 2274301786) LYMPH % (test code = 10.6 % 736-9) MONO % (test code = 5.4 % 5905-5) EOS % (test code = 1.6 % 713-8) BASO % (test code = 0.4 % 706-2) GRAN MAT x10^3(ANC) 15.75 10*3/uL 1.88-7.09 H (test code = 5611072188) IMM GRAN x10^3 (test 0.17 10*3/uL 0-0.06 H code = 7198121407) LYMPH x10^3 (test code 2.05 10*3/uL 1.32-3.29 = 731-0) MONO x10^3 (test code 1.04 10*3/uL 0.33-0.92 H = 742-7) EOS x10^3 (test code = 0.31 10*3/uL 0.03-0.39 711-2) BASO x10^3 (test code 0.07 10*3/uL 0.01-0.07 = 704-7) Lab Interpretation Abnormal (test code = 57880-9) [facility] Metabolic Panel (NA, K, CL, CO2, GLUCOSE, BUN, CREATININE, CA)2020-05-24 11:25:00 Test Item Value Reference Range Interpretation Comments NA (test code = 139 mmol/L 135-145 1124994299) K (test code = 3.2 mmol/L 3.5-5 L 5474075627) CL (test code = 102 mmol/L 98-108 7146039751) CO2 TOTAL (test code = 26 mmol/L 23-31 9159092516) AGAP (test code = 2-16 6245153888) BUN (test code = 6 mg/dL 7-23 L 8388478657) GLUCOSE (test code = 94 mg/dL 70-110 8326305553) CREATININE (test code = 0.63 mg/dL 0.5-1.04 5854435787) CALCIUM (test code = 9.0 mg/dL 8.6-10.6 7730255316) eGFR Calculation mL/min/1.73m2 (Non-) (test code = 9966873563) eGFR Calculation mL/min/1.73m2 () (test code = 3559043691) WILLY (test code = WILLY) Association of Glomerular Filtration Rate (GFR) and Staging of Kidney Disease* + --+ --+ ------+| GFR (mL/min/1.73 m2) ?| With Kidney Damage ?| ?Without Kidney Damage+ --------+ --------+ +| ?>90 ?| ?Stage one ?| ? Normal ?+ ---+ ---+ -------+| ?60-89 ?| ?Stage two ?| ? Decreased GFR ? + --+ --+ ------+| ?30-59 ?| ?Stage three ?| ? Stage three ? + --+ --+ ------+| ?15-29 ?| ?Stage four ? | ? Stage four ?+ ---+ ---+ -------+| ?<15 (or dialysis) ? ?| ?Stage five ? | ? Stage five ?+ ---+ ---+ -------+ *Each stage assumes the associated GFR level has been in effect for at least three months. ?Stages 1 to 5, with or without kidney disease, indicate chronic kidney disease. Notes: Determination of stages one and two (with eGFR >59mL/min/1.73 m2) requires estimation of kidney damage for at least three months as defined by structural or functional abnormalities of the kidney, manifested by either:Pathological abnormalities or Markers of kidney damage (including abnormalities in the composition of the blood or urine or abnormalities in imaging tests). Lab Interpretation Abnormal (test code = 74729-1) [facility]NE[facility] [id number] 08:07:00 Test Item Value Reference Range Interpretation Comments S. pneumoniae antigen (test code = Negative Negative 7740064982) Lab Interpretation (test code = Normal 06788-8) [facility] HospitalLEGIONELLA URINARY ANTIGEN [id number] 06:47:00 Test Item Value Reference Range Interpretation Comments Legionella Urinary Negative Negative Antigen (test code = 9936542965) WILLY (test code = WILLY) Negative for L. pneumophilia serogroup I antigen in urine suggesting no recent or current infection. Infection due to Legionella cannot be ruled out since other serogroups and species may cause disease. Furthermore, antigens may not be present in urine during early stage of infection, or the level of antigen present in urine may be below the detection limit of the test. Lab Interpretation (test Normal code = 87911-3) [facility] HospitalPROCALCITONIN2020-09-18 05:45:00 Test Item Value Reference Range Interpretation Comments Procalcitonin (test 0.09 ng/mL <0.07 H code = 5778821346) WILLY (test code = WILLY) INTERPRETATION OF PROCALCITONIN RESULTS IN ADULTS >= 18 YEARS OF AGE Initiation and discontinuation of antibiotics on patients with suspected or confirmed Lower Respiratory Tract Infection in Adults >= 18 years of age. + +-------- --------+ + -----+|Procalcitonin |Interpretation ?|Antibiotic ? ? |Considerations ? |ng/mL ? | ?|recommendation | ? + +-------- --------+ + -----+| <0.1 ? | Bacterial ? ? ?| Strongly ? ? ?| ? | ?| infection very | discouraged ? | Overruling: ? | ?| unlikely ? ? ? | ? | ? Clinically unstable ? ? ? + +-------- --------+ + ? High risk for adverse ? ? | <0.25 ?| Bacterial ? ? ?| Discouraged ? | ? outcome ? | ?| infection ? ? ?| ? | ? SEE IMPORTANT NOTE ?| ?| unlikely ? ? ? | ? | ? + +-------- --------+ + -----+| >=0.25 ? ? ? | Bacterial ? ? ?| Encouraged ? ?| ? | ?| infection ? ? ?| ? | ? | ?| likely ? | ? | Consider treatment failure ?+ +------- ---------+ -+ if levels does not decrease | >0.5 ? | Bacterial ? ? ?| Strongly ? ? ?| appropriately ? | ?| infection very | encouraged ? ?| ? | ?| likely ? | ? | ? + +-------- --------+ + -----+ Discontinuation of antibiotics in high-acuity patients with suspected or confirmed sepsis in Adults >= 18 years of age. + +-------- --------+ + -----+|Procalcitonin |Interpretation ?|Antibiotic ? ? |Considerations ? |ng/mL ? | ?|recommendation | ? + +-------- --------+ + -----+| <0.25 ?| Bacterial ? ? ?| Strongly ? ? ?| ? | ?| infection very | discouraged ? | Overruling: ? | ?| unlikely ? ? ? | ? | ? Clinically unstable ? ? ? + +-------- --------+ + ? High risk for adverse ? ? | <0.5 or drop | Bacterial ? ? ?| Discouraged ? | ? outcome ? | >80% from ? ?| infection ? ? ?| ? | ? SEE IMPORTANT NOTE ?| highest PCT ?| unlikely ? ? ? | ? | ? | level ?| ?| ? | ? + +-------- --------+ + -----+| >=0.5 ?| Bacterial ? ? ?| Encouraged ? ?| ? | ?| infection ? ? ?| ? | ? | ?| likely ? | ? | Consider treatment failure ?+ +------- ---------+ -+ if levels does not decrease | >1.0 ? | Bacterial ? ? ?| Strongly ? ? ?| appropriately ? | ?| infection very | encouraged ? ?| ? | ?| likely ? | ? | ? + +-------- --------+ + -----+ Percentage of drop of Procalcitonin calculation for Discontinuation of antibiotics in high-acuity patients with suspected or confirmed sepsis in Adults >= 18 years of age. ? Procalcitonin highest{}-Procalcitonin current{}Delta Procalcitonin = x100% ? Procalcitonin current {} IMPORTANT NOTE: Procalcitonin may be elevated without bacterial infection by physiologic stress related to trauma, bowling, chronic dialysis, metastatic cancer, surgery in the past seven days, malaria, some fungal infections, and some forms of vasculitis. The interpretation algorithm may not apply to patients with immunosuppression (equivalent of >10 mg of prednisone daily), HIV with CD4 cell count < 350 cells/mm3, active malignancy on systemic chemotherapy, solid organ transplant or hematopoietic stem cell transplantation, or hospital acquired pneumonia. Additionally, some clinical trials of procalcitonin have excluded patients with shock requiring vasopressor use, acute respiratory failure requiring mechanical ventilation, or those with known lung abscess/empyema. For further information please refer to:[email or web address] Lab Interpretation Abnormal (test code = 63619-4) [facility] HospitalLACTATE [id number] 23:03:00 Test Item Value Reference Range Interpretation Comments LDH (test code = 1952864827) 524 U/L 300-600 Lab Interpretation (test code = Normal 31871-7) [facility] HospitalGLYCOSYLATED HEMOGLOBIN (A1C)2020-05-23 22:25:00 Test Item Value Reference Range Interpretation Comments HGB A1C (test code = 5.0 % 4-6 4548-4) WILLY (test code = WILLY) %A1C (NGSP) Interpretation (ADA)4.8-5.6 ? ? Normal or (Non-Diabetic Range)5.7-6.4 ? ? Increased Risk (Pre-Diabetic)>6.5 ?Diabetes Indicated Lab Interpretation Normal (test code = 46787-4) [facility] HospitalFERRITIN [id number] 21:24:00 Test Item Value Reference Range Interpretation Comments FERRITIN (test code = 143.0 ng/mL 6-137 H 7922292314) WILLY (test code = WILLY) Biotin has been reported to cause a negative bias, interpret results relative to patient's use of biotin. Lab Interpretation (test Abnormal code = 35269-2) [facility] HospitalCT PELVIS W [id number] 16:44:21CT scan of Pelvis with contrast. CLINICAL HISTORY: Right gluteal cellulitis/abscess. TECHNIQUE: Multidetector helical CT acquisition was obtained from the leveliliac crests to the greater trochanters with IV contrast. ?The images werereviewed in lung, bone, and soft tissue windows. FINDINGS: Intravenous contrast enhancement with rather poor due tosignificant delay in obtaining CT images after intraven ous injection ofcontrast medium. Diffuse congestion of the right gluteal subcutaneous fatty tissue notedextending from right anterior pararectal space where there is anapproximately 2.4 x 1.2 cm size abscess. Abscess is probably arising fromlower right lateral wall of vagina. Uterus and adnexa are unre markable. Visualized intestinal gas pattern isunremarkable. The appendix is normal. No bony abnormalities. CONCLUSION: 2.4 x 1.2 cm size abscess in the right side of the lowerperineum, arising from posterolateral right vaginal wall with diffusecongestion of the right gluteal soft tissue. [facility], Radiant Results Inft User - 05/23/2020 11:45 AM CDTCT scan of Pelvis with contrast.CLINICAL HISTORY: Rightgluteal cellulitis/abscess.TECHNIQUE: Multidetector helical CT acquisition was obtained from the leveliliac crests to the greater trochanters with IV contrast. The images werereviewed in lung, bone, and soft tissue windows.FINDINGS: Intravenous contrast enhancement with rather poor due tosignificant delay in obtaining CT images after intravenous injection ofcontrast medium.Diffuse congestion of the right gluteal subcutaneous fatty tissue notedextending from right anterior pararectal space where there is anapproximately 2.4 x 1.2 cm size abscess. Abscess is probably arising fromlower right lateral wall of vagina.Uterus and adnexa are unremarkable. Visualized intestinal gas pattern isunremarkable. The appendix is normal. No bony abnormalities.CONCLUSION: 2.4 x 1.2 cm size abscess in the right sideof the lowerperineum, arising from posterolateral right vaginal wall with diffusecongestion of the right gluteal soft tissue.[facility] HospitalCOVID-19 (ID NOW RAPID TESTING)2020-05-23 16:34:00 Test Item Value Reference Range Interpretation Comments SARS-CoV-2 Rapid ID NOW Positive Not Detected A (test code = 63504-1) WILLY (test code = WILLY) ID NOW COVID-19 Assay is an isothermal nucleic acid amplification test intended for the qualitative detection of nucleic acid from SARS-CoV-2 viral RNA in nasopharyngeal (DISPLAY CARD WRITER) specimens. It is used under Emergency Use Authorization (EUA) by FDA. The limit of detection (LOD) of the assay is 125 Genome Equivalents/mL. A positive result is indicative of the presence of SARS-CoV-2 RNA. ?Clinical correlation with patient history and other diagnostic information is necessary to determine patient infection status. A negative (Not Detected) result does not preclude SARS-CoV-2 infection. In patients with clinical symptoms and other tests that are consistent with SARS-CoV-2 infection, negative results should be treated as presumptive negative and a new specimen should be tested with alternative PCR molecular test. Invalid: Please collect a new specimen for repeat patient testing if clinically indicated. Lab Interpretation Abnormal (test code = 16743-5) [facility] with [id number] 16:10:00 Test Item Value Reference Range Interpretation Comments WBC (test code = See_Comment H [Automated 4890-2) message] The system which generated this result transmit jr reference range : 4.30 - 11.10 10*3/?L. The reference range was not used to interpret this result as normal/abnormal . RBC (test code = See_Comment [Automated 919-8) message] The system which generated this result transmit jr reference range : 3.93 - 5.25 10*6/?L. The reference range was not used to interpret this result as normal/abnormal . HGB (test code = 13.9 g/dL 11.6-15 718-7) HCT (test code = 40.2 % 35.7-45.2 4544-3) MCV (test code = 89.3 fL 80.6-95.5 787-2) MCH (test code = 30.9 pg 25.9-32.8 785-6) MCHC (test code = 34.6 g/dL 31.6-35.1 786-4) RDW-SD (test code = 38.4 fL 39-49.9 L 07722-1) RDW-CV (test code = 11.9 % 12-15.5 L 788-0) PLT (test code = See_Comment [Automated 777-3) message] The system which generated this result transmit jr reference range : 166 - 358 10*3/ ?L. The reference range was not u sed to interpret th is result as normal/abnormal . MPV (test code = 9.9 fL 9.5-12.9 39841-7) NRBC/100 WBC (test See_Comment [Automat ed code = 8190010732) message] The system which generated this result transmit jr reference range : 0.0 - 10.0 /100 WBCs. The reference range was not used to interpret this result as normal/abnormal . NRBC x10^3 (test code <0.01 See_Comment [Auto mated = 1453970998) message] The system which generated this result transmit jr reference range : 10*3/?L. The reference range was not used to interpret this result as normal/abnormal . GRAN MAT (NEUT) % 85.7 % (test code = 770-8) IMM GRAN % (test code 1.20 % = 0088551929) LYMPH % (test code = 7.2 % 736-9) MONO % (test code = 4.9 % 5905-5) EOS % (test code = 0.6 % 713-8) BASO % (test code = 0.4 % 706-2) GRAN MAT x10^3(ANC) 22.25 10*3/uL 1.88-7.09 H (test code = 9209318040) IMM GRAN x10^3 (test 0.30 10*3/uL 0-0.06 H code = 7475153427) LYMPH x10^3 (test code 1.87 10*3/uL 1.32-3.29 = 731-0) MONO x10^3 (test code 1.28 10*3/uL 0.33-0.92 H = 742-7) EOS x10^3 (test code = 0.16 10*3/uL 0.03-0.39 711-2) BASO x10^3 (test code 0.11 10*3/uL 0.01-0.07 H = 704-7) Lab Interpretation Abnormal (test code = 07596-9) [facility] (NA, K, CL, CO2, GLUCOSE, BUN, CREATININE, CA)2020-05-23 15:59:00 Test Item Value Reference Range Interpretation Comments NA (test code = 135 mmol/L 135-145 5685158362) K (test code = 3.5 mmol/L 3.5-5 4686701679) CL (test code = 99 mmol/L 98-108 4742345250) CO2 TOTAL (test code = 19 mmol/L 23-31 L 9979313621) AGAP (test code = 2-16 H 4590507782) BUN (test code = 15 mg/dL 7-23 3435492848) GLUCOSE (test code = 118 mg/dL 70-110 H 0588550858) CREATININE (test code = 0.82 mg/dL 0.5-1.04 8821603299) CALCIUM (test code = 9.7 mg/dL 8.6-10.6 1150936829) eGFR Calculation mL/min/1.73m2 (Non-) (test code = 0306719335) eGFR Calculation mL/min/1.73m2 () (test code = 9565514453) WILLY (test code = WILLY) Association of Glomerular Filtration Rate (GFR) and Staging of Kidney Disease* + --+ --+ ------+| GFR (mL/min/1.73 m2) ?| With Kidney Damage ?| ?Without Kidney Damage+ --------+ --------+ +| ?>90 ?| ?Stage one ?| ? Normal ?+ ---+ ---+ -------+| ?60-89 ?| ?Stage two ?| ? Decreased GFR ? + --+ --+ ------+| ?30-59 ?| ?Stage three ?| ? Stage three ? + --+ --+ ------+| ?15-29 ?| ?Stage four ? | ? Stage four ?+ ---+ ---+ -------+| ?<15 (or dialysis) ? ?| ?Stage five ? | ? Stage five ?+ ---+ ---+ -------+ *Each stage assumes the associated GFR level has been in effect for at least three months. ?Stages 1 to 5, with or without kidney disease, indicate chronic kidney disease. Notes: Determination of stages one and two (with eGFR >59mL/min/1.73 m2) requires estimation of kidney damage for at least three months as defined by structural or functional abnormalities of the kidney, manifested by either:Pathological abnormalities or Markers of kidney damage (including abnormalities in the composition of the blood or urine or abnormalities in imaging tests). Lab Interpretation Abnormal (test code = 68302-5) [facility] HospitalUrinalysis2020-09-17 15:39:00 Test Item Value Reference Range Interpretation Comments APPEARANCE (test code = Hazy Clear A 1346140703) COLOR (test code = Mckenzie Yellow A 0264169580) PH (test code = 4.8-8.0 4525946405) SP GRAVITY (test code = 1.003-1.030 2129676258) GLU U QUAL (test code = Normal Normal 6311088181) BLOOD (test code = Negative Negative 6680104258) KETONES (test code = 80 mg/dL Negative A 8357159957) PROTEIN (test code = 100 mg/dL Negative A 2887-8) UROBILIN (test code = 4.0 mg/dL Normal A 1132509953) BILIRUBIN (test code = Negative Negative 4858916976) NITRITE (test code = Negative Negative 5127225264) LEUK EDDIE (test code = 250/uL Negative A 6210814675) RBC/HPF (test code = See_Comment [Autom ated message] 6450652043) The system [employer] generated this result transmit jr reference range : 0 - 3 HPF. The refe rence range was not u sed to interpret th is result as normal/abnormal . WBC/HPF (test code = See_Comment H [Autom ated message] 6355546601) The system [employer] generated this result transmit jr reference range : 0 - 5 HPF. The refe rence range was not u sed to interpret th is result as normal/abnormal . BACTERIA (test code = Moderate Negative A 5724404730) MUCOUS (test code = Moderate Negative LPF A 2942578581) SQ EPITH (test code = HPF 4862938669) Lab Interpretation (test Abnormal code = 30430-1) [facility] HospitalPOCT [id number] 15:17:00 Test Item Value Reference Range Interpretation Comments POCT PREG (test code = 1605) negative On board controls acceptable with present C Line (test code = 3574) POCT PREG LOT # (test code = 3575) [id number] POCT PREG TEST DATE (test 07/06/2021 code = 3576) Lab Interpretation (test code = Normal 00781-9) [facility] HospitalLactic Acid Whole [id number] 15:09:00 Test Item Value Reference Range Interpretation Comments LACTIC ACID (test code = 1.73 mmol/L 5096815676) [facility] HospitalTHYROID STIMULATING [id number] 17:54:00 Test Item Value Reference Range Interpretation Comments TSH (test code = See_Comment [Automated message] 0358893380) The system [employer] h generated this result transmitted ref erence range: 0.45 - 4 .70 mIU/L. The refe rence range was not u sed to interpret this result as normal/abnor mal. Lab Interpretation (test Normal code = 26666-7) [facility] HospitalProthrombin Time (PT) / [id number] 17:46:00 Test Item Value Reference Range Interpretation Comments PROTIME PATIENT (test See_Comment [Auto mated message] code = 5964-2) The system [employer] generated this result transmitted ref erence range: 12.0 - 1 4.7 Seconds. The re ference range was not u sed to interpret this result as normal/abnor mal. INR (test code = 6301-6) Nor mal INR <1.1; Warfarin Therap eutic range 2.0 to 3. 0 or 2.5 to 3.5, dep ending upon the indica tions. Lab Interpretation (test Normal code = 56530-2) [facility] HospitalaPTT2020-05-13 17:42:00 Test Item Value Reference Range Interpretation Comments APTT Patient (test See_Comment [Automat ed code = 3173-2) message] The system which generated this result transmitted reference range : 23 - 38 Seconds . The reference range was not used to interpr et this result as normal/abnormal . WILLY (test code = WILLY) The [facility] patient population mean normal value for aPTT is 30 seconds. Lab Interpretation Normal (test code = 24469-2) [facility] HospitalFREE [id number] 17:40:00 Test Item Value Reference Range Interpretation Comments FREE T4 (test code = 8029815496) 0.99 ng/dL 0.78-2.2 Lab Interpretation (test code = Normal 88824-5) [facility] HospitalETHANOL2020-05-13 17:35:00 Test Item Value Reference Range Interpretation Comments ALCOHOL (test code = <10 mg/dL 9547132599) WILLY (test code = WILLY) <10 Zsamueuj88-861 Toxic>100 Depression of FILM RECORDIST>400 Fatalities Reported [facility] HospitalACETAMINOPHEN2020-05-13 17:35:00 Test Item Value Reference Range Interpretation Comments ACETAMINOP (test code = <10.0 10-30 L 2113878961) WILLY (test code = WILLY) Toxic: Greater than 200 ug/mL @ 4 hour post ingestion or greater than 50 ug/mL @ 12 hour post ingestion Lab Interpretation (test Abnormal code = 47666-5) [facility] HospitalSALICYLATE2020-05-13 17:35:00 Test Item Value Reference Range Interpretation Comments SALICYLATE (test code <10 mg/L = 0092548373) WILLY (test code = WILLY) Therapeutic Range: ? Analgesic and Antipyretic Use ? 20-100 mg/L ? ? Anti-Inflammatory Use ? 100-250 mg/L Toxic Range: ? Greater than 300 mg/L [facility] HospitalADC / [facility] - DRUG SCREEN [id number] 17:30:00 Test Item Value Reference Range Interpretation Comments BENZO U (test code = Negative Negative 3346103780) HOLA U (test code = Negative Negative 4382824416) AMPHET (test code = Negative Negative 7609846343) THC (test code = Presumptive Negative A Confirmatio n of 8651722149) Positive Presumptive Positive THC result requires physician order . METHADONE (test code Negative Negative = 8463170598) Meth U (test code = Negative Negative 2696466621) OPIATES (test code = Negative Negative 8859149746) Cocaine Metabolite Negative Negative (test code = 7900978536) PROPOXY (test code = Negative Negative 0420248614) Tric U (test code = Negative Negative 6578814593) PCP (test code = Negative Negative 6931240300) OXYCOD (test code = Negative Negative 4709930426) WILLY (test code = Urine Drug Cutoff WILLY) Ranges Benzodiazepines: ? ? 150 ng/mLBarbiturates : ?200 ng/mLAmphetamine: ? 500 ng/mLCannabinoids : ?50 ?ng/mLMethadone: ? 200 ng/mLMethamphetam ine: ? ? 500 ng/mL Opiates: ? 100 ng/mL or 2000 ng/mLCocaine: ? 150 ng/mLPropoxyphene : ?300 ng/mLTricyclics: ?300 ng/mLOxycodone: ? 100 ng/mLPCP: ? 25 ?ng/mL The results are to be used only for medical (i.e., treatment) purposes. Unconfirmed screening results must not be used for non-medical purposes (e.g., employment testing, legal testing). Lab Interpretation Abnormal (test code = 38523-1) [facility] HospitalHepatic Function Panel (ALB, T.PRO, BILI T, BU/BC, ALT, AST, ALK PHOS)2020-01-17 17:23:00 Test Item Value Reference Range Interpretation Comments TOTAL BILI (test code = 9030315044) 1.5 mg/dL 0.1-1.1 H BILI UNCON (test code = 2016342259) 1.6 mg/dL 0.1-1.1 H BILI CONJ (test code = 6752469400) 0.0 mg/dL 0-0.3 T PROTEIN (test code = 5244326486) 7.9 g/dL 6.3-8.2 ALBUMIN (test code = 8608648928) 4.9 g/dL 3.5-5 ALK PHOS (test code = 1497516320) 51 U/L 34-122 ALTv (test code = 1742-6) 22 U/L 5-35 AST(SGOT) (test code = 0836697226) 26 U/L 13-40 Lab Interpretation (test code = Abnormal 09602-6) [facility] (NA, K, CL, CO2, GLUCOSE, BUN, CREATININE, CA)2020-01-17 17:23:00 Test Item Value Reference Range Interpretation Comments NA (test code = 142 mmol/L 135-145 0490886113) K (test code = 4.0 mmol/L 3.5-5 5075351902) CL (test code = 109 mmol/L 98-108 H 8025459979) CO2 TOTAL (test code = 24 mmol/L 23-31 4739055262) AGAP (test code = 2-16 9984921624) BUN (test code = 9 mg/dL 7-23 7507172138) GLUCOSE (test code = 124 mg/dL 70-110 H 3163709520) CREATININE (test code = 0.52 mg/dL 0.5-1.04 7271191513) CALCIUM (test code = 9.6 mg/dL 8.6-10.6 1382436283) eGFR Calculation mL/min/1.73m2 (Non-) (test code = 2304354300) eGFR Calculation mL/min/1.73m2 () (test code = 3883454744) WILLY (test code = WILLY) Association of Glomerular Filtration Rate (GFR) and Staging of Kidney Disease* + --+ --+ ------+| GFR (mL/min/1.73 m2) ?| With Kidney Damage ?| ?Without Kidney Damage+ --------+ --------+ +| ?>90 ?| ?Stage one ?| ? Normal ?+ ---+ ---+ -------+| ?60-89 ?| ?Stage two ?| ? Decreased GFR ? + --+ --+ ------+| ?30-59 ?| ?Stage three ?| ? Stage three ? + --+ --+ ------+| ?15-29 ?| ?Stage four ? | ? Stage four ?+ ---+ ---+ -------+| ?<15 (or dialysis) ? ?| ?Stage five ? | ? Stage five ?+ ---+ ---+ -------+ *Each stage assumes the associated GFR level has been in effect for at least three months. ?Stages 1 to 5, with or without kidney disease, indicate chronic kidney disease. Notes: Determination of stages one and two (with eGFR >59mL/min/1.73 m2) requires estimation of kidney damage for at least three months as defined by structural or functional abnormalities of the kidney, manifested by either:Pathological abnormalities or Markers of kidney damage (including abnormalities in the composition of the blood or urine or abnormalities in imaging tests). Lab Interpretation Abnormal (test code = 60747-0) [facility]00 Test Item Value Reference Range Interpretation Comments APPEARANCE (test code = Hazy Clear A 3570237719) COLOR (test code = Yellow Yellow 0628364189) PH (test code = 4.8-8.0 6392041425) SP GRAVITY (test code = 1.003-1.030 4235065081) GLU U QUAL (test code = Normal Normal 5673983573) BLOOD (test code = Negative Negative 6141528137) KETONES (test code = 5 mg/dL Negative A 5347352063) PROTEIN (test code = Negative Negative 2887-8) UROBILIN (test code = Normal Normal 6833018420) BILIRUBIN (test code = Negative Negative 0790395375) NITRITE (test code = Negative Negative 4904741003) LEUK EDDIE (test code = 250/uL Negative A 8209591332) RBC/HPF (test code = See_Comment [Autom ated message] 3171067406) The system [employer] generated this result transmitted ref erence range: 0 - 3 HP F. The reference range was not used to int erpret this result as normal/abnormal . WBC/HPF (test code = See_Comment [Autom ated message] 6625058062) The system [employer] generated this result transmitted ref erence range: 0 - 5 HP F. The reference range was not used to int erpret this result as normal/abnormal . BACTERIA (test code = Few Negative A 7447520919) MUCOUS (test code = Slight Negative LPF A 1424936489) SQ EPITH (test code = HPF 0567663649) Lab Interpretation (test Abnormal code = 96518-8) [facility] WITH [id number] 17:02:00 Test Item Value Reference Range Interpretation Comments WBC (test code = See_Comment [Automated 6690-2) message] The sy stem which generated this result transmitted reference range : 4.30 - 11.10 10*3/?L. The reference range was not used to interpret this result as normal/abnormal . RBC (test code = See_Comment [Automated 789-8) message] The sy stem which generated this result transmitted reference range : 3.93 - 5.25 10*6/?L. The reference range was not used to interpret this result as normal/abnormal . HGB (test code = 13.5 g/dL 11.6-15 718-7) HCT (test code = 38.3 % 35.7-45.2 4544-3) MCV (test code = 86.7 fL 80.6-95.5 787-2) MCH (test code = 30.5 pg 25.9-32.8 785-6) MCHC (test code = 35.2 g/dL 31.6-35.1 H 786-4) RDW-SD (test code = 36.4 fL 39-49.9 L 32971-7) RDW-CV (test code = 11.6 % 12-15.5 L 788-0) PLT (test code = See_Comment [Automated 777-3) message] The sy stem which generated this result transmitted reference range : 166 - 358 10*3/ ?L. The reference r michael was not used to interpret this result as normal/abnormal . MPV (test code = 9.7 fL 9.5-12.9 21691-0) NRBC/100 WBC (test See_Comment [Automat ed code = 3760350364) message] The system which generated this result transmitted reference range : 0.0 - 10.0 /100 WBCs. The refer ence range was not u sed to interpret th is result as normal/abnormal . NRBC x10^3 (test code <0.01 See_Comment [Auto mated = 4769614446) message] The s ystem which generated this result transmitted reference range : 10*3/?L. The reference range was not used to interpret this result as normal/abnormal . GRAN MAT (NEUT) % 80.1 % (test code = 770-8) IMM GRAN % (test code 0.40 % = 1572945825) LYMPH % (test code = 13.9 % 736-9) MONO % (test code = 4.6 % 5905-5) EOS % (test code = 0.7 % 713-8) BASO % (test code = 0.3 % 706-2) GRAN MAT x10^3(ANC) 7.99 10*3/uL 1.88-7.09 H (test code = 0418698798) IMM GRAN x10^3 (test 0.04 10*3/uL 0-0.06 code = 9697865673) LYMPH x10^3 (test code 1.39 10*3/uL 1.32-3.29 = 731-0) MONO x10^3 (test code 0.46 10*3/uL 0.33-0.92 = 742-7) EOS x10^3 (test code = 0.07 10*3/uL 0.03-0.39 711-2) BASO x10^3 (test code 0.03 10*3/uL 0.01-0.07 = 704-7) Lab Interpretation Abnormal (test code = 49782-5) [facility] Test, [id number] 16:51:00 Test Item Value Reference Range Interpretation Comments POCT PREG (test code = 1605) negative On board controls acceptable with present C Line (test code = 3574) POCT PREG LOT # (test code = 3575) [id number] POCT PREG TEST DATE (test 2021-04-05 code = 3576) Lab Interpretation (test code = Normal 37426-5) [facility] STREP SCREEN FOR GROUP [id number] 17:31:00 Test Item Value Reference Range Interpretation Comments Streptococcus pyogenes (group A) Positive Negative A antigen (test code = 65850-6) Lab Interpretation (test code = Abnormal 17980-1) [facility] [id number] 16:05:00 Test Item Value Reference Range Interpretation Comments POCT PREG (test code = 1605) Negative On board controls acceptable with C Yes Line (test code = 3574) POCT PREG LOT # (test code = 3575) POCT PREG TEST DATE (test code = 3576) [facility] [id number] 16:05:00 Test Item Value Reference Range Interpretation Comments POCT PREG (test code = 1605) Negative On board controls acceptable with C Yes Line (test code = 3574) POCT PREG LOT # (test code = 3575) POCT PREG TEST DATE (test code = 3576) [facility] [id number] 16:05:00 Test Item Value Reference Range Interpretation Comments POCT PREG (test code = 1605) Negative On board controls acceptable with C Yes Line (test code = 3574) POCT PREG LOT # (test code = 3575) POCT PREG TEST DATE (test code = 3576) [facility]"
[2021-07-23 15:04] LABS: Urine Blood Negative (Negative); Urine Glucose Negative (Negative); Urine Protein Negative (Negative); Urine Specific Gravity 1.015 (1.005-1.030)
--- NOTE | 2021-07-23 15:06 | EDPHYS ---
Physician Documentation [facility] Name: Charity Bermudez Age: 20 yrs Sex: Female : 2000 Arrival Date: 07/23/2021 Time: 14:53 Bed 5 Private MD: ED Physician Blayne Whitehead HPI: 07/23 15:11 This 20 yrs old Female presents to ER via Ambulatory with complaints of r/o . kb 15:11 The patient presents to the emergency department with wants test. The patient kb has not recently seen a physician. 15:11 course: care: has appt with Dr Narvaez on Wednesday. Previous pregnancies: kb in previous pregnancies patient has had. Associated signs and symptoms: The patient has no apparent associated signs or symptoms. The patient has not experienced similar symptoms in the past. 15:13 Pt states she took 3 tests last night and they were all positive, but she kb came here to make sure. 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 - Social history:: Smoking status: Patient reports the use of cigarette tobacco products, denies chronic smoking, but will smoke occasionally. ROS: 15:10 Constitutional: Negative for fever, chills, and weight loss. kb 15:10 All other systems are negative. Exam: 15:10 Constitutional: This is a well developed, well nourished patient who is awake, alert, kb and in no acute distress. Head/Face: Normocephalic, atraumatic. ENT: Moist Mucous membranes Respiratory: Respirations even and unlabored. No increased work of breathing, no retractions or nasal flaring. Skin: Warm, dry with normal turgor. Normal color. MS/ Extremity: Pulses equal, no cyanosis. Neurovascular intact. Full, normal range of motion. Neuro: Awake and alert, GCS 15, oriented to person, place, time, and situation. Moves all extremities. Normal gait. Psych: Awake, alert, with orientation to person, place and time. Behavior, mood, and affect are within normal limits. Vital Signs: 15:03 BP 146 / 82; Pulse 111; Resp 18; Temp 98.8; Pulse Ox 100% on R/A; Weight 86.18 kg; ap3 Height 5 ft. 5 in. (165.10 cm); Pain 0/10; 15:03 Body Mass Index 31.62 (86.18 kg, 165.10 cm) ap3 MDM: 14:56 Patient medically screened. 14:58 Data reviewed: vital signs, nurses notes. kb 15:05 Data interpreted: Pulse oximetry: on room air is 100 %. Interpretation: normal. kb Counseling: I had a detailed discussion with the patient and/or guardian regarding: the historical points, exam findings, and any diagnostic results supporting the discharge/admit diagnosis, lab results, the need for outpatient follow up, an OB/Gyne specialist, to return to the emergency department if symptoms worsen or persist or if there are any questions or concerns that arise at home. 07/23 15:04 Order name: Urine Dipstick-Ancillary; Complete Time: 15:06 EDWY 07/23 15:10 Order name: Urine --Ancillary (enter results) bd Administered Medications: No medications were administered Disposition: 18:00 Co-signature as Attending Physician, Blayne Whitehead MD. rn Disposition Summary: 07/23/21 15:05 Discharge Ordered Location: Home kb Condition: Stable kb Diagnosis - Encounter for test kb Followup: kb - With: Emergency Department - When: As needed - Reason: Worsening of condition Followup: kb - With: Private Physician - When: 2 - 3 days - Reason: Recheck today's complaints, Continuance of care, Re-evaluation by your physician Forms: - Medication Reconciliation Form kb - Thank You Letter kb - Antibiotic Education kb - Prescription Opioid Use kb Signatures: Dispatcher [employer] EDWY Rosa Garcia FNP-C FNP-Blayne Tellez MD MD rn Prokisch, Amanda, RN RN ap3
--- NOTE | 2021-07-23 15:06 | ER ---
Nurse's Notes [facility] Name: Charity Bermudez Age: 20 yrs Sex: Female : 2000 Arrival Date: 07/23/2021 Time: 14:53 Bed 5 Private MD: Diagnosis: Encounter for test Presentation: 07/23 15:03 Chief complaint: Patient states: she is in need of a test. She took several ap3 last night from [employer], but wanted to be sure of results. Coronavirus screen: At this time, the client does not indicate any symptoms associated with coronavirus-19. Ebola Screen: No symptoms or risks identified at this time. Initial Sepsis Screen: Does the patient meet any 2 criteria? No. Patient's initial sepsis screen is negative. Does the patient have a suspected source of infection? No. Patient's initial sepsis screen is negative. Risk Assessment: Do you want to hurt yourself or someone else? Patient reports no desire to harm self or others. Onset of symptoms was July 23, 2021. 15:03 Method Of Arrival: Ambulatory ap3 15:03 Acuity: ADE 4 ap3 Triage Assessment: 15:05 General: Appears in no apparent distress. comfortable, Behavior is calm, cooperative, ap3 appropriate for age. Pain: Denies pain. 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 - Social history:: Smoking status: Patient reports the use of cigarette tobacco products, denies chronic smoking, but will smoke occasionally. Screenin:05 Abuse screen: Denies threats or abuse. Nutritional screening: No deficits noted. ap3 Tuberculosis screening: No symptoms or risk factors identified. Fall Risk None identified. Assessment: 15:06 General: Appears in no apparent distress. comfortable, Behavior is calm, cooperative, ap3 appropriate for age. Neuro: Level of Consciousness is awake, alert, obeys commands. Cardiovascular: Patient's skin is warm and dry. Respiratory: Airway is patent Respiratory effort is even, unlabored, Respiratory pattern is regular, symmetrical. Vital Signs: 15:03 BP 146 / 82; Pulse 111; Resp 18; Temp 98.8; Pulse Ox 100% on R/A; Weight 86.18 kg; ap3 Height 5 ft. 5 in. (165.10 cm); Pain 0/10; 15:03 Body Mass Index 31.62 (86.18 kg, 165.10 cm) ap3 ED Course: 14:53 Patient arrived in ED. as 14:54 Rosa Garcia FNP-C [facility]. kb 14:54 Blayne Whitehead MD is Attending Physician. kb 14:56 Salena Parks, RN is Primary Nurse. ap3 15:04 Triage completed. ap3 15:06 Arm band placed on right wrist. ap3 15:07 Patient has correct armband on for positive identification. Bed in low position. Call ap3 light in reach. Pulse ox on. NIBP on. Door closed. Noise minimized. 15:07 No provider procedures requiring assistance completed. Patient did not have IV access ap3 during this emergency room visit. Administered Medications: No medications were administered Outcome: 15:05 Discharge ordered by . kb 15:28 Discharged to home ambulatory. jl7 15:28 Condition: stable 15:28 Discharge instructions given to patient, Instructed on discharge instructions, follow up and referral plans. Demonstrated understanding of instructions, follow-up care. 15:29 Patient left the ED. jl7 Signatures: Rosa Garcia FNP-C FNP-Ckb Martinez, Amelia as Leal, Jahala, RN RN jl7 Salena Parks RN RN ap3
[2021-07-23 15:50] LABS: Urine Specific Gravity/Preg 1.015 (1.005-1.030)
[2021-07-23 15:56] VITALS: BP 146/82; TEMP 98.8; O2SAT 100
== END 2021-07-23 15:29 | disposition home or self-care (01) ==
LOC: ER 14:51
DX: Z32.01 Encounter for pregnancy test, result positive (principal)
CPT/HCPCS: 81003; 81025; 99283